=== PATIENT | male | born 1950 | race Two or more races ===

== ENCOUNTER 2016-08-31 14:53 | Outpatient (CLI) | payer MEDICAID | END 2016-08-31 14:54 | disposition home or self-care (01) | DX: N05.9 Unspecified nephritic syndrome with unspecified morphologic changes (principal); D70.9 Neutropenia, unspecified; D63.1 Anemia in chronic kidney disease; E83.30 Disorder of phosphorus metabolism, unspecified; N25.81 Secondary hyperparathyroidism of renal origin ==

== ENCOUNTER 2016-10-07 11:38 | Outpatient (CLI) | payer MEDICAID | END 2016-10-07 11:39 | disposition home or self-care (01) | DX: E87.1 Hypo-osmolality and hyponatremia (principal) ==

== ENCOUNTER 2016-12-23 09:53 | Outpatient (CLI) | payer MEDICAID | END 2016-12-23 09:54 | disposition home or self-care (01) | DX: N05.9 Unspecified nephritic syndrome with unspecified morphologic changes (principal); D70.9 Neutropenia, unspecified; D63.1 Anemia in chronic kidney disease; E83.30 Disorder of phosphorus metabolism, unspecified; N25.81 Secondary hyperparathyroidism of renal origin; M10.00 Idiopathic gout, unspecified site ==

== ENCOUNTER 2017-03-01 07:39 | Outpatient (CLI) | payer MEDICAID ==
--- NOTE | 2017-03-01 08:55 | Ultrasound Report ---
LIMITED RETROPERITONEAL ULTRASOUND: 03/01/2017 CLINICAL INDICATION: Aneurysm followup. COMPARISON: 08/26/2016, 01/21/2016 TECHNIQUE: Real-time scanning was performed with applications sales representative static images obtained. FINDINGS: The abdominal aorta measures 2.1 cm proximally, and 2.0 cm in the mid portion. Saccular d ilatation of the distal aorta is again seen, measuring 2.8 x 2.5 cm. The iliacs are normal in calibe r. No free fluid is present. IMPRESSION: STABLE SACCULAR DILATATION OF THE DISTAL ABDOMINAL AORTA. 08:9:00 JOB #: [id number] EXT JOB #:
== END 2017-03-01 07:40 | disposition home or self-care (01) ==
LOC: DI 07:39
PROVIDERS: ATTEND Internal Medicine Nephrology
DX: I71.4 Abdominal aortic aneurysm, without rupture (principal)
CPT/HCPCS: 76775

== ENCOUNTER 2017-03-24 17:53 | Outpatient (CLI) | payer MEDICAID ==
[2017-03-24 18:26] LABS: BASOPHILS # (AUTO) 0.1 10^3/uL (0.0-0.1); EOSINOPHILS # (AUTO) 1.6 10^3/uL (0.0-0.7); EOSINOPHILS % (AUTO) 21.3 %; HCT - HEMATOCRIT 28.8 % (42.0-52.0); HGB - HEMOGLOBIN 9.9 g/dL (14.0-18.0); LYMPHOCYTES # (AUTO) 0.9 10^3/uL (1.5-3.5); LYMPHOCYTES % (AUTO) 12.5 %; MEAN CORPUSCULAR HEMOGLOBIN 32.7 pg (27.0-31.0); MEAN CORPUSCULAR HGB CONC 34.4 g/dL (32.0-36.0); MEAN PLATELET VOLUME 6.9 fL (7.4-11.4); MONOCYTES # (AUTO) 0.5 10^3/uL (0.0-1.0); MONOCYTES % (AUTO) 6.8 %; NEUTROPHILS # (AUTO) 4.3 10^3/uL (1.5-6.6); NEUTROPHILS % (AUTO) 58.4 %; RED BLOOD COUNT 3.03 10^6/uL (4.70-6.10); RED CELL DISTRIBUTION WIDTH 13.3 % (12.0-15.0); UNCORRECTED WHITE BLOOD COUNT 7.3 x10^3/uL; WHITE BLOOD COUNT 7.3 x10^3/uL (4.8-10.8)
[2017-03-24 19:38] LABS: CALCIUM 8.3 mg/dL (8.5-10.3); CREATININE 6.9 mg/dL (0.6-1.2); POTASSIUM 4.7 mmol/L (3.5-5.0)
[2017-03-24 22:01] LABS: NP AUTO DIFFERENTIAL? NO; PLATELET ESTIMATE, MANUAL NORMAL (130-450,000) (NORMAL); PLATELET MORPHOLOGY NORMAL APPEARANCE (NORMAL)
[2017-03-24 22:02] LABS: NP MAN DIFFERENTIAL? YES
== END 2017-03-24 17:54 | disposition home or self-care (01) ==
LOC: LAB 17:53
PROVIDERS: ATTEND Internal Medicine Nephrology
DX: N05.9 Unspecified nephritic syndrome with unspecified morphologic changes (principal)
CPT/HCPCS: 36415; 80048; 85025

== ENCOUNTER 2017-04-20 09:02 | Outpatient (CLI) | payer MEDICAID ==
[2017-04-20 09:44] LABS: HGB - HEMOGLOBIN 8.9 g/dL (14.0-18.0); MEAN CORPUSCULAR HEMOGLOBIN 32.6 pg (27.0-31.0); MEAN CORPUSCULAR HGB CONC 34.2 g/dL (32.0-36.0); MEAN CORPUSCULAR VOLUME 95.5 fL (80.0-94.0); MEAN PLATELET VOLUME 7.5 fL (7.4-11.4); RED BLOOD COUNT 2.72 10^6/uL (4.70-6.10); RED CELL DISTRIBUTION WIDTH 14.6 % (12.0-15.0); WHITE BLOOD COUNT 8.7 x10^3/uL (4.8-10.8)
[2017-04-20 09:46] LABS: INR 0.9 (0.8-1.2); PT - PROTHROMBIN TIME 10.3 secs (9.9-12.6)
[2017-04-20 09:53] LABS: PARTIAL THROMBOPLASTIN TIME 27.2 secs (24.9-33.3)
[2017-04-20 10:39] LABS: CALCIUM 8.4 mg/dL (8.5-10.3); POTASSIUM 4.2 mmol/L (3.5-5.0)
[2017-04-20 10:44] LABS: CREATININE 7.6 mg/dL (0.6-1.2)
== END 2017-04-20 09:03 | disposition home or self-care (01) ==
LOC: LAB 09:02
PROVIDERS: ATTEND Internal Medicine Nephrology
DX: N05.9 Unspecified nephritic syndrome with unspecified morphologic changes (principal); D68.9 Coagulation defect, unspecified
CPT/HCPCS: 36415; 80048; 85610; 85730

== ENCOUNTER 2017-08-26 15:18 | Outpatient (CLI) | payer MEDICAID | END 2017-08-26 15:19 | disposition critical access hospital (66) | LOC: EMS 15:18 | PROVIDERS: ATTEND Surgery | DX: T82.838A Hemorrhage due to vascular prosthetic devices, implants and grafts, initial encounter (principal) | CPT/HCPCS: A0425; A0429 ==

== ENCOUNTER 2017-08-26 15:36 | Emergency (ER) | payer MEDICAID ==
[2017-08-26] MEDS ORDERED: TRANEXAMIC ACID 1,000 MG in SODIUM CHLORIDE 0.9% 100ML 100 ML IV STA (16:36)
[2017-08-26] MEDS ORDERED: TRANEXAMIC ACID 1,000 MG/10 ML VIAL ONE (16:45)
[2017-08-26] MEDS ORDERED: PROTAMINE 250 MG/25 ML VIAL IVP STA (16:57)
[2017-08-26 17:20] LABS: BASOPHILS # (AUTO) 0.1 10^3/uL (0.0-0.1); BASOPHILS % (AUTO) 1.1 %; EOSINOPHILS # (AUTO) 0.8 10^3/uL (0.0-0.7); EOSINOPHILS % (AUTO) 11.8 %; HGB - HEMOGLOBIN 10.2 g/dL (14.0-18.0); LYMPHOCYTES # (AUTO) 1.6 10^3/uL (1.5-3.5); LYMPHOCYTES % (AUTO) 25.1 %; MEAN CORPUSCULAR HEMOGLOBIN 33.2 pg (27.0-31.0); MEAN CORPUSCULAR HGB CONC 34.2 g/dL (32.0-36.0); MEAN CORPUSCULAR VOLUME 97.1 fL (80.0-94.0); MEAN PLATELET VOLUME 8.4 fL (7.4-11.4); MONOCYTES # (AUTO) 0.4 10^3/uL (0.0-1.0); MONOCYTES % (AUTO) 6.3 %; NEUTROPHILS # (AUTO) 3.6 10^3/uL (1.5-6.6); NEUTROPHILS % (AUTO) 55.7 %; PLT - PLATELET COUNT 122 10^3/uL (130-450); RED BLOOD COUNT 3.07 10^6/uL (4.70-6.10); RED CELL DISTRIBUTION WIDTH 17.9 % (12.0-15.0); WHITE BLOOD COUNT 6.4 x10^3/uL (4.8-10.8)
--- NOTE | 2017-08-26 17:24 | ED Physician Documentation ---
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, also hx HTN only home med is allopurinol NKDA heavy bleeding from dialysis AV fistula L arm after completing dialysis was given heparin during dialysis BIBA per other ER doc Dr Shaji awan called earlier and spoke to him and advised fistula was hard to access during dialysis, may have used Hernandez instead - pt explains that the dialysis staff accessed the AV fistula 3 times and it was painful and swelled up so they used his R chest Hernandez instead, at some point the needle was removed from the fistula and it started spouting blood - pt states Wallace bled throughout his dialysis session but itmusthave been aslower bleed- cannot believe that he was bleeding as heavily as upon arrival at dialysis for several hr and was still stable upon arrival here Review of Systems Constitutional: denies: Fever Cardiac: denies: Chest pain / pressure Respiratory: denies: Dyspnea Skin: reports: Other (bleeding from AV fistula) PD PAST MEDICAL HISTORY - Past Medical History Past Medical History: Yes : Other Other Past Medical History: RENAL FAILURE. - Present Medications Home Medications: Ambulatory Orders Medication Instructions Recorded Confirmed Acetaminophen [Tylenol] 325 mg PO PRN 08/26/17 Allopurinol 08/26/17 Amino AC/Protein Hydr/Whey Pro 30 ml 08/26/17 [Liquacel Liq Protein Pump-Go] Darbepoetin [Aranesp] 60 mcg IVP 08/26/17 Paricalcitol [Zemplar] 6 mcg PO 08/26/17 Vit B Cmplx 3/FA/Vit C/Biotin 1 tab PO DAILY 08/26/17 08/26/17 [Yary-Cris Rx Tablet] hydrOXYzine pamoate [Hydroxyzine 25 mg PO PRN 08/26/17 Pamoate] - Allergies Allergies/Adverse Reactions: Allergies Allergy/AdvReac Type Severity Reaction Status Date / Time No Known Drug Allergies Allergy Verified 08/26/17 16:59 - Social History Does the pt smoke?: No Smoking Status: Never smoker PD ED PE NORMAL - Vitals Vital signs reviewed: Yes - Extremities Extremities: Other (L arm brisk pulsatile bleeding from L arm AV fistula from 3 puncture sites, + distal perfusion) Results - Vitals Vitals: Vital Signs - 24 hr 08/26/17 08/26/17 08/26/17 15:55 17:29 18:21 Temperature 36.8 C 36.3 C L Heart Rate 88 88 81 Respiratory 18 15 18 Rate Blood Pressure 158/103 H 145/101 H 143/100 H O2 Saturation 97 100 100 08/26/17 22:01 Temperature Heart Rate 77 Respiratory 18 Rate Blood Pressure 146/98 H O2 Saturation 98 Oxygen O2 Source Room air - Labs Labs: Laboratory Tests 08/26/17 08/26/17 08/26/17 17:08 17:08 21:48 WBC 6.4 RBC 3.07 L Hgb 10.2 L 9.2 L Hct 29.8 L 27.7 L MCV 97.1 H MCH 33.2 H MCHC 34.2 RDW 17.9 H Plt Count 122 L MPV 8.4 Neut # 3.6 Lymph # 1.6 [place] # 0.4 Eos # 0.8 H Baso # 0.1 Absolute Nucleated RBC 0.00 Nucleated RBC % 0.0 Blood Type B POSITIVE Antibody Screen NEGATIVE - Rads (name of study) doppler study Radiology: See rad report (fistula patent, pseudoaneurysm underlying puncture site) PD MEDICAL DECISION MAKING - ED course ED course: pt arrives bleeding heavily no improvement with C clamp placed at dialysis center soaked through numerous pressure dressings no improvement with lido with epi nor even applying a BP cuff (tried to avoid using but could not stop the bleeding or visualize well enough to suture - did place near axillae being careful to stay well above fistula, did not help anyway so was on for < 30 sec) difficult to visualize given heavy bleeding but able to place figure 8 absorbable suture to uppermost puncture with resolution middle site stopped spontaneously after upper controlled lower puncture proved much more challenging - despite 3 figure 8 sutures bleeding persists - stop when manually pulling suture ends but starts again after tying off -applied gauze soaked in TXA and another pressure dressing for 10 minutes and bleeding finally ceased pt is feeling light headed now IV access obtained, gave protamine, checking labs, get sono to eval for thrombus after applying pressure dressing or aneurysm/pseudoaneurysm etc H/H fine - will rpt in 2 hr sono shows a pseudoaneurysm, presumably new, may need vascular intervention to prevent enlargement or recurrent bleeding, no vascular at [facility] - may need transfer to [facility] where graft was placed, paged vascular at 845 PM - still waiting on rpt H/H to be drawn as well - turned over to mid shift Dr Girard Departure - Departure Disposition: 01 Home, Self Care Clinical Impression: Pseudoaneurysm, ESRD (end stage renal disease) Hemorrhage of arteriovenous fistula Qualifiers: Encounter type: initial encounter Qualified Code(s): T82.838A - Hemorrhage due to vascular prosthetic devices, implants and grafts, initial encounter Comments: FOLLOWUP WITH VASCULAR SURGERY AT [facility] [phone] Also follow-up with Dr. Harden. ONLY THE [facility] SHOULD BE USED FOR DIALYSIS UNTIL FURTHER NOTICE Discharge Date/Time: 08/26/17 22:02
--- NOTE | 2017-08-26 20:28 | Ultrasound Preliminary Report ---
Exam: US DOPPLER LIMITED IMPRESSION: 1. Patient has a left upper extremity fistula. Fistula appears to be patent. No significant stenosis of the outflow or inflow tracts. 2. There is a rounded vascular structure in close proximity to one of the puncture sites demonstratin g healing in the inflow and turbulence. Constellation of findings is concerning for pseudoaneurysm. R ecommend assess for surgical consultation. [facility] SITE ID: [id number]
--- NOTE | 2017-08-26 20:43 | Ultrasound Report ---
EXAM: RENAL ULTRASOUND EXAM DATE: 08/26/2017 06:51 PM. CLINICAL HISTORY: Heavy bleed left dialysis AV fistula. COMPARISON: None. TECHNIQUE: Real-time scanning was performed with static images obtained. FINDINGS: Patient has a left upper extremity AV fistula graft. The inflow vessels appear patent and d emonstrate normal arterialized flow. Particularly, the brachial artery is patent. The fistula graft is patent. No evidence of stenosis. No large adjacent hematoma. There appears to be a rounded vascular structure demonstrating turbulent flow measuring approximately 2 cm in the area of one of the puncture sites. Imaging has characteristic [place] flow. Findings ar e concerning for a pseudoaneurysm. The cephalic vein appears patent and demonstrates arterialized flow. The subclavian vein is not evalu ated. As such, evaluation of the central stenosis is not possible. IMPRESSION: 1. Patient has a left upper extremity fistula. The fistula appears to be patent. No significant steno sis of the outflow or inflow tracts. 2. There is a rounded vascular structure in close proximity to one of the puncture sites demonstratin g Yin-[place] flow and turbulence. Constellation of findings is concerning for a pseudoaneurysm. Recomme nd vascular surgical consultation. [facility] Referring Provider Line: [phone] SITE ID: [id number]
--- NOTE | 2017-08-26 21:13 | ED Physician Documentation ---
ED Addendum - Addendum Addendum: 08/26/17 21:[address] Blackmon, vasc surgery at [place]. No need for followup tonight, should use Hernandez going forward for dialysis and see [facility] and Vascular surgery. Minor H/H drop but not significant. Bleeding remained stopped after Dr Avalos's interventions.
[2017-08-26 21:54] LABS: HGB - HEMOGLOBIN 9.2 g/dL (14.0-18.0)
[2017-08-26 22:02] VITALS: BP 146/98
== END 2017-08-26 22:02 | disposition home or self-care (01) ==
LOC: EDUNIT# → ED 15:36
DX: I72.9 Aneurysm of unspecified site (principal); T82.838A Hemorrhage due to vascular prosthetic devices, implants and grafts, initial encounter; I12.0 Hypertensive chronic kidney disease with stage 5 chronic kidney disease or end stage renal disease; N18.6 End stage renal disease; Z99.2 Dependence on renal dialysis
CPT/HCPCS: 12001; 36415; 85014; 85018; 85025; 86850; 86900; 86901; 93976; 96365; 96366; 96375; 99283; 99284

== ENCOUNTER 2017-09-13 06:59 | Outpatient (CLI) | payer MEDICAID ==
--- NOTE | 2017-09-13 10:40 | Ultrasound Report ---
DATE OF SERVICE: 09/13/2017 LIMITED RETROPERITONEAL ULTRASOUND: 09/13/2017 CLINICAL INDICATION: Followup aneurysm. COMPARISON: 03/01/2017 TECHNIQUE: Real-time scanning was performed with credit resolution representative static images obtained. FINDINGS: The abdominal aorta measures 2.2 cm proximally, and 2.2 cm in the mid portion. Saccular aneurysmal dilatation of the distal abdominal aorta has increased slightly, now measuring 3.5 x 3.0 cm (previously 2.8 x 2.5 cm). No free fluid is present. The iliacs remain normal in caliber. 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 TD: 09/13/2017 11:39
== END 2017-09-13 07:00 | disposition home or self-care (01) ==
LOC: DI 06:59
PROVIDERS: ATTEND Internal Medicine Nephrology
DX: I71.4 Abdominal aortic aneurysm, without rupture (principal)
CPT/HCPCS: 76775

== ENCOUNTER 2017-09-30 13:29 | Outpatient (CLI) | payer MEDICAID | END 2017-09-30 13:30 | disposition critical access hospital (66) | LOC: EMS 13:29 | PROVIDERS: ATTEND Surgery | DX: R46.4 Slowness and poor responsiveness (principal) | CPT/HCPCS: A0425; A0429 ==

== ENCOUNTER 2017-09-30 13:49 | Emergency (ER) | payer MEDICAID ==
--- NOTE | 2017-09-30 14:02 | ED Physician Documentation ---
History of Present Illness - Stated complaint Stated Complaint: ALOC - Chief complaint Chief Complaint: Neuro - History obtained from History obtained from: Patient, EMS - History of Present Illness Timing: Today - Additonal information Additional information: 67-year-old male with end-stage renal disease on dialysis was at dialysis today when he developed a change in his mental status. He became less responsive and dialysis personnel called 911. On arrival they found the patient alert and cooperative they were unable to communicate with him as there is a language barrier and interpretation phone was inadequate for communication. The patient was able to communicate that he did want to come to the hospital and they felt ill.I am able to elicit a history of cough. Review of Systems Constitutional: denies: Fever Eyes: denies: Decreased vision Ears: denies: Ear pain Nose: denies: Congestion Throat: denies: Sore throat Cardiac: denies: Chest pain / pressure, Palpitations Respiratory: reports: Dyspnea, Cough GI: denies: Abdominal Pain, Nausea, Vomiting : denies: Dysuria, Frequency Skin: denies: Rash Musculoskeletal: denies: Neck pain, Back pain, Extremity pain Neurologic: reports: Generalized weakness. denies: Focal weakness, Numbness PD PAST MEDICAL HISTORY - Past Medical History : Other - Present Medications Home Medications: Ambulatory Orders Medication Instructions Recorded Confirmed Acetaminophen [Tylenol] 325 mg PO PRN 08/26/17 Allopurinol 08/26/17 Amino AC/Protein Hydr/Whey Pro 30 ml 08/26/17 [Liquacel Liq Protein Pump-Go] Darbepoetin [Aranesp] 60 mcg IVP 08/26/17 Paricalcitol [Zemplar] 6 mcg PO 08/26/17 Vit B Cmplx 3/FA/Vit C/Biotin 1 tab PO DAILY 08/26/17 08/26/17 [Yary-Cris Rx Tablet] hydrOXYzine pamoate [Hydroxyzine 25 mg PO PRN 08/26/17 Pamoate] - Allergies Allergies/Adverse Reactions: Allergies Allergy/AdvReac Type Severity Reaction Status Date / Time No Known Drug Allergies Allergy Verified 09/30/17 13:57 - Social History Does the pt smoke?: No Smoking Status: Never smoker PD ED PE NORMAL - Vitals Vital signs reviewed: Yes (Hypertensive) - General General: No acute distress, Well developed/nourished - HEENT HEENT: Atraumatic, PERRL, EOMI, Other (There is cerumen occluding the right TM the left TM is erythematous and there is partial occlusion.) - Neck Neck: Supple, no meningeal sign - Cardiac Cardiac: RRR, No murmur - Respiratory Respiratory: No respiratory distress, Clear bilaterally - Abdomen Abdomen: Soft, Non tender - Back Back: No CVA TTP, No spinal TTP - Derm Derm: Normal color, No rash - Extremities Extremities: No deformity, No edema - Neuro Neuro: No motor deficit, No sensory deficit Eye Opening: Spontaneous Motor: Obeys Commands Verbal: Oriented GCS Score: 15 - Psych Psych: Normal mood, Normal affect Results - Vitals Vitals: Vital Signs - 24 hr 09/30/17 13:51 Temperature 36.4 C L Heart Rate 76 Respiratory 16 Rate Blood Pressure 144/103 H O2 Saturation 99 Oxygen O2 Source Room air - Labs Labs: Laboratory Tests 09/30/17 09/30/17 09/30/17 14:28 14:28 14:28 WBC 5.5 RBC 3.30 L Hgb 11.4 L Hct 33.9 L MCV 102.8 H MCH 34.6 H MCHC 33.7 RDW 18.9 H Plt Count 80 L MPV 8.4 Neut # 3.6 Lymph # 0.8 L [place] # 0.4 Eos # 0.7 Baso # 0.1 Absolute Nucleated RBC 0.00 Nucleated RBC % 0.0 Sodium 133 L Potassium 3.6 Chloride 95 L Carbon Dioxide 25 Anion Gap 13.0 BUN 22 H Creatinine 4.4 H Estimated GFR (MDRD) 13 L Glucose 81 Calcium 8.9 Total Bilirubin 1.0 AST 22 ALT 13 Alkaline Phosphatase 53 Troponin I 0.07 Total Protein 6.9 Albumin 4.1 Globulin 2.8 Albumin/Globulin Ratio 1.5 Lipase 47 - Rads (name of study) 2 view chest Radiology: Prelim report reviewed (Impression: 1. Very small bilateral pleural effusions. 2. 1.8 cm right lower lobe pulmonary nodule versus overlapping densities such as old rib fracture. Comparison with previous chest x-ray recommended if available. If no priors available, recommend follow-up chest radiograph. 3. Mild cardiomegaly.), EMP read indepedently, See rad report Procedures - IVC sono (time) 1357 Bedside IVC sono: IVC measures (cm) (1.52), Euvolemia PD MEDICAL DECISION MAKING - ED course Complexity details: reviewed old records, reviewed results, re-evaluated patient , considered differential, d/w patient, d/w family ED course: 67-year-old maleWith end-stage renal disease on dialysis has developed some dizziness with his dialysis that has happened to him each time. Today this was more profound than usual and he is complaining of some exertional dyspnea since starting dialysis 6 months ago.Today his volume status is normal on arrival to the emergency department he has no specific findings ear nose and throat and no nystagmus on lateral eye movement.Chest x-ray is without infiltrate blood work is as expected.I have asked the patient to follow-up with his dialysis doctor about symptoms from his dialysis. Departure - Departure Disposition: 01 Home, Self Care Clinical Impression: Status post dialysis Condition: Stable Instructions: ED Dialysis Hemo Follow-Up: Quiana Loomis MD [Provider Admit Priv/Credential] -
[2017-09-30 14:38] LABS: BASOPHILS # (AUTO) 0.1 10^3/uL (0.0-0.1); BASOPHILS % (AUTO) 1.2 %; EOSINOPHILS # (AUTO) 0.7 10^3/uL (0.0-0.7); EOSINOPHILS % (AUTO) 12.3 %; HGB - HEMOGLOBIN 11.4 g/dL (14.0-18.0); LYMPHOCYTES # (AUTO) 0.8 10^3/uL (1.5-3.5); LYMPHOCYTES % (AUTO) 13.9 %; MEAN CORPUSCULAR HEMOGLOBIN 34.6 pg (27.0-31.0); MEAN CORPUSCULAR HGB CONC 33.7 g/dL (32.0-36.0); MEAN CORPUSCULAR VOLUME 102.8 fL (80.0-94.0); MEAN PLATELET VOLUME 8.4 fL (7.4-11.4); MONOCYTES # (AUTO) 0.4 10^3/uL (0.0-1.0); NEUTROPHILS # (AUTO) 3.6 10^3/uL (1.5-6.6); NEUTROPHILS % (AUTO) 64.6 %; PLT - PLATELET COUNT 80 10^3/uL (130-450); RED CELL DISTRIBUTION WIDTH 18.9 % (12.0-15.0); WHITE BLOOD COUNT 5.5 x10^3/uL (4.8-10.8)
[2017-09-30 14:56] LABS: ALBUMIN 4.1 g/dL (3.2-5.5); ALBUMIN/GLOBULIN RATIO 1.5 (1.0-2.2); CALCIUM 8.9 mg/dL (8.5-10.3); CREATININE 4.4 mg/dL (0.6-1.2); TOTAL PROTEIN 6.9 g/dL (6.7-8.2)
--- NOTE | 2017-09-30 14:56 | XRAY Report ---
EXAM: CHEST RADIOGRAPHY EXAM DATE: 09/30/2017 02:27 PM. CLINICAL HISTORY: Cough weakness. COMPARISON: None. TECHNIQUE: 2 views. FINDINGS: Lungs/Pleura: There is mild blunting of both posterior costophrenic angles. There is a nodular densit y in the right lower lobe measuring 1.8 cm in diameter. There is atelectasis versus small pneumonia i n the left lower lobe. The upper lung zones are clear. Mediastinum: The heart is enlarged. The trachea is midline. Other: None. IMPRESSION: 1. Very small bilateral pleural effusions. 2. 1.8 cm right lower lobe pulmonary nodule versus overlapping densities such as old rib fracture. Co mparison with previous chest x-ray recommended if available. If no priors available, recommend follow -up chest radiograph. 3. Mild cardiomegaly. [facility] Referring Provider Line: [phone] SITE ID: [id number]
--- NOTE | 2017-09-30 14:56 | XRAY Preliminary Report ---
Exam: XR CHEST 2 VIEW X-RAY IMPRESSION: 1. Very small bilateral pleural effusions. 2. 1.8 cm right lower lobe pulmonary nodule versus overlapping densities such as old rib fracture. Co mparison with previous chest x-ray recommended if available. If no priors available, recommend follow -up chest radiograph. 3. Mild cardiomegaly. [facility] SITE ID: [id number]
[2017-09-30 15:38] VITALS: BP 145/96
== END 2017-09-30 16:25 | disposition home or self-care (01) ==
LOC: EDUNIT# → ED 13:49
DX: N18.6 End stage renal disease (principal); Z99.2 Dependence on renal dialysis; R06.00 Dyspnea, unspecified
CPT/HCPCS: 36415; 71046; 80053; 83690; 84484; 85025; 99283; 99284

== ENCOUNTER 2017-10-20 10:01 | Emergency (ER) | payer MEDICAID ==
[2017-10-20 10:08] VITALS: BP 157/59
[2017-10-20] MEDS ORDERED: ERYTHROMYCIN OPHTH OINT 1 GM TUBE EACHEYE STA (11:02)
--- NOTE | 2017-10-20 11:27 | ED Physician Documentation ---
PD HPI OPHTHO - Stated complaint Stated Complaint: BILAT EYE REDNESS - Chief complaint Chief Complaint: Heent - History obtained from History obtained from: Patient - History of Present Illness Timing - onset: Last night Timing - details: Still present Location: Both Associated symptoms: Redness, Tearing Similar symptoms before: Has not had sx before - Additional information Additional information: The patient is a 67-year-old male who presents with redness and tearing from both eyes. His symptoms started last night after putting eyedrops in his eyes. He presents with increased redness this morning. He denies any change in his visual acuity. He does not wear contact lenses. In addition to irritation and redness of his eyes, he complains of sore throat and cough. He denies fever, headache, or shortness of breath. He denies history of similar symptoms in the past. Review of Systems Constitutional: denies: Fever Eyes: reports: Discharge, Irritation. denies: Decreased vision Ears: denies: Ear pain Nose: denies: Congestion Throat: reports: Sore throat Cardiac: denies: Chest pain / pressure Respiratory: reports: Cough. denies: Dyspnea GI: denies: Abdominal Pain, Nausea, Vomiting Skin: denies: Rash Neurologic: denies: Headache PD PAST MEDICAL HISTORY - Past Medical History Respiratory: None Endocrine/Autoimmune: None : Other - Present Medications Home Medications: Ambulatory Orders Medication Instructions Recorded Confirmed Acetaminophen [Tylenol] 325 mg PO PRN 08/26/17 Allopurinol 08/26/17 Amino AC/Protein Hydr/Whey Pro 30 ml 08/26/17 [Liquacel Liq Protein Pump-Go] Darbepoetin [Aranesp] 60 mcg IVP 08/26/17 Paricalcitol [Zemplar] 6 mcg PO 08/26/17 Vit B Cmplx 3/FA/Vit C/Biotin 1 tab PO DAILY 08/26/17 08/26/17 [Yary-Cris Rx Tablet] hydrOXYzine pamoate [Hydroxyzine 25 mg PO PRN 08/26/17 Pamoate] Benzonatate [Tessalon Perle] 100 mg PO BID PRN #10 capsule 10/20/17 Erythromycin Base [Erythromycin 3.5 gm OP QID #1 oint...g. 10/20/17 Ophthalmic Ointment] - Allergies Allergies/Adverse Reactions: Allergies Allergy/AdvReac Type Severity Reaction Status Date / Time No Known Drug Allergies Allergy Verified 10/20/17 10:08 - Social History Does the pt smoke?: No Smoking Status: Never smoker PD ED PE NORMAL - Vitals Vital signs reviewed: Yes (hypertensive) - General General: Alert and oriented X 3, Well developed/nourished, Other (Language barrier exists, in that the patient speaks primarily [place]an.) - HEENT HEENT: PERRL, EOMI, Ears normal, Pharynx benign, Other (Bilateral conjunctival erythema, without exudates. Anterior chambers are clear.). No: Atraumatic - Neck Neck: Supple, no meningeal sign, No adenopathy - Cardiac Cardiac: RRR, No murmur - Respiratory Respiratory: No respiratory distress, Clear bilaterally - Abdomen Abdomen: Soft, Non tender - Derm Derm: No rash - Extremities Extremities: Normal ROM s pain - Neuro Neuro: Alert and oriented X 3, No motor deficit, Normal speech PD ED PE EXPANDED - Eyes Eyes: Visual acuity - see nn (20/20 in each eye.), PERRL, Normal accommodation, EOMI, Both eyes, Injected conj/sclera, Anterior chambers clear Results - Vitals Vitals: Oxygen O2 Source Room air PD MEDICAL DECISION MAKING - ED course Complexity details: considered differential, d/w patient, other (Consulted telephone japanese interpreter services since the patient speaks primarily [place]andan.) ED course: The patient's presentation is most consistent with bilateral conjunctivitis. There is no impairment of his physician acuity, and his exam does not suggest uveitis. Treatment in the emergency department included administration of erythromycin ophthalmic ointment bilaterally. In addition the patient complains of sore throat, but there is no oropharyngeal erythema or exudate. I do not think getting a strep screen is clinically indicated. Since there was a language barrier, interpretative services was consulted to assist with history and with discharge instructions. The patient is being discharged with a prescription for erythromycin ophthalmic ointment and for Tessalon pearls. I discussed with him the expected course of illness, treatment and outpatient follow-up, as well as potentially worrisome signs or symptoms that should prompt reevaluation in the emergency department. Departure - Departure Disposition: 01 Home, Self Care Clinical Impression: Sore throat Bilateral conjunctivitis Qualifiers: Conjunctivitis type: unspecified Qualified Code(s): H10.9 - Unspecified conjunctivitis Condition: Stable Instructions: ED Conjunctivitis Nonspecific, ED URI Viral Follow-Up: Quiana Loomis MD [Primary Care Provider] - Prescriptions: Benzonatate [Tessalon Perle] 100 mg PO BID PRN #10 capsule PRN Reason: Cough Erythromycin Base [Erythromycin Ophthalmic Ointment] 3.5 gm OP QID #1 oint...g. Comments: Insert ophthalmic ointment in each eye 4 times daily for the next 2 days. Follow up with your primary physician within 1 week if not completely resolved. Return to the emergency department if you develop increasing irritation in your eyes, or decreased visual acuity, or otherwise worsening symptoms. Discharge Date/Time: 10/20/17 11:47
== END 2017-10-20 11:47 | disposition home or self-care (01) ==
LOC: ED 10:01
DX: J02.9 Acute pharyngitis, unspecified (principal)
CPT/HCPCS: 99283; J3490

== ENCOUNTER 2017-10-27 10:02 | Emergency (ER) | payer MEDICAID ==
--- NOTE | 2017-10-27 12:02 | ED Physician Documentation ---
PD HPI HEENT - Stated complaint Stated Complaint: BILAT EYE IRRITATION - Chief complaint Chief Complaint: Heent - History obtained from History obtained from: Patient PD PAST MEDICAL HISTORY - Past Medical History Respiratory: None Endocrine/Autoimmune: None : Other - Present Medications Home Medications: Ambulatory Orders Medication Instructions Recorded Confirmed Acetaminophen [Tylenol] 325 mg PO PRN 08/26/17 Allopurinol 08/26/17 Amino AC/Protein Hydr/Whey Pro 30 ml 08/26/17 [Liquacel Liq Protein Pump-Go] Darbepoetin [Aranesp] 60 mcg IVP 08/26/17 Paricalcitol [Zemplar] 6 mcg PO 08/26/17 Vit B Cmplx 3/FA/Vit C/Biotin 1 tab PO DAILY 08/26/17 08/26/17 [Yary-Cris Rx Tablet] hydrOXYzine pamoate [Hydroxyzine 25 mg PO PRN 08/26/17 Pamoate] Benzonatate [Tessalon Perle] 100 mg PO BID PRN #10 capsule 10/20/17 Erythromycin Base [Erythromycin 3.5 gm OP QID #1 oint...g. 10/20/17 Ophthalmic Ointment] - Allergies Allergies/Adverse Reactions: Allergies Allergy/AdvReac Type Severity Reaction Status Date / Time No Known Drug Allergies Allergy Verified 10/20/17 10:08 - Social History Does the pt smoke?: No Smoking Status: Never smoker Results - Vitals Vitals: Vital Signs - 24 hr 10/27/17 10:38 Temperature 37.1 C Heart Rate 94 Respiratory 20 Rate Blood Pressure 152/77 H O2 Saturation 98 Oxygen O2 Source Room air
--- NOTE | 2017-10-27 12:16 | ED Physician Documentation ---
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 PAST MEDICAL HISTORY - Past Medical History Respiratory: None Endocrine/Autoimmune: None : Other - Present Medications Home Medications: Ambulatory Orders Medication Instructions Recorded Confirmed Acetaminophen [Tylenol] 325 mg PO PRN 08/26/17 Allopurinol 08/26/17 Amino AC/Protein Hydr/Whey Pro 30 ml 08/26/17 [Liquacel Liq Protein Pump-Go] Darbepoetin [Aranesp] 60 mcg IVP 08/26/17 Paricalcitol [Zemplar] 6 mcg PO 08/26/17 Vit B Cmplx 3/FA/Vit C/Biotin 1 tab PO DAILY 08/26/17 08/26/17 [Yary-Cris Rx Tablet] hydrOXYzine pamoate [Hydroxyzine 25 mg PO PRN 08/26/17 Pamoate] Benzonatate [Tessalon Perle] 100 mg PO BID PRN #10 capsule 10/20/17 Erythromycin Base [Erythromycin 3.5 gm OP QID #1 oint...g. 10/20/17 Ophthalmic Ointment] - Allergies Allergies/Adverse Reactions: Allergies Allergy/AdvReac Type Severity Reaction Status Date / Time No Known Drug Allergies Allergy Verified 10/20/17 10:08 - Social History Does the pt smoke?: No Smoking Status: Never smoker Results - Vitals Vitals: Vital Signs - 24 hr 10/27/17 10:38 Temperature 37.1 C Heart Rate 94 Respiratory 20 Rate Blood Pressure 152/77 H O2 Saturation 98 Oxygen O2 Source Room air
[2017-10-27] MEDS ORDERED: ALBUTEROL NEB 2.5 MG/3 ML INH STA (12:38)
[2017-10-27] MEDS ORDERED: DEXAMETHASONE 10 MG/ML VIAL PO STA (12:40)
[2017-10-27] MEDS ORDERED: BENZONATATE 100 MG CAPSULE PO STA (12:41)
[2017-10-27] MEDS ORDERED: HYDROcod/ACETAM 5/325 MG TABLET PO STA (12:41)
--- NOTE | 2017-10-27 12:41 | ED Physician Documentation ---
PD HPI LOWER EXT INJURY - Stated complaint Stated Complaint: BILAT EYE IRRITATION - Chief complaint Chief Complaint: Heent - History obtained from History obtained from: Patient - History of Present Illness PD HPI LOW EXT INJURY LOCATION: Left, Knee Type of injury: Other (awoke with knee hurting today. Hurts with ROM. Has had gout in it before. Tried allopurinol without improvement.). No: Fall, Twist Where injury occurred: Home Timing - onset: Today Timing - details: Abrupt onset, Still present Worsened by: Moving, Palpating Associated symptoms: No: Weakness, Numbness, Swelling, Discolored Contributing factors: No: Anticoagulated Recently seen: Clinic (had dialysis yesterday) Review of Systems Constitutional: denies: Fever, Chills Ears: reports: Loss of hearing (=chronic, very hard of hearing) Nose: reports: Congestion Throat: denies: Sore throat Cardiac: denies: Chest pain / pressure Respiratory: reports: Dyspnea, Cough, Wheezing GI: denies: Vomiting, Diarrhea Skin: denies: Rash, Lesions Neurologic: denies: Generalized weakness, Focal weakness, Numbness, Difficulty speaking PD PAST MEDICAL HISTORY - Past Medical History Cardiovascular: Hypertension Respiratory: None Endocrine/Autoimmune: None : Renal insuffiency, Other Musculoskeletal: Gout - Present Medications Home Medications: Ambulatory Orders Medication Instructions Recorded Confirmed Acetaminophen [Tylenol] 325 mg PO PRN 08/26/17 Allopurinol 08/26/17 Amino AC/Protein Hydr/Whey Pro 30 ml 08/26/17 [Liquacel Liq Protein Pump-Go] Darbepoetin [Aranesp] 60 mcg IVP 08/26/17 Paricalcitol [Zemplar] 6 mcg PO 08/26/17 Vit B Cmplx 3/FA/Vit C/Biotin 1 tab PO DAILY 08/26/17 08/26/17 [Yary-Cris Rx Tablet] hydrOXYzine pamoate [Hydroxyzine 25 mg PO PRN 08/26/17 Pamoate] Benzonatate [Tessalon Perle] 100 mg PO BID PRN #10 capsule 10/20/17 Erythromycin Base [Erythromycin 3.5 gm OP QID #1 oint...g. 10/20/17 Ophthalmic Ointment] Albuterol Sulf [Ventolin Hfa 1 - 2 puffs INH Q4HR PRN #1 inhaler 10/27/17 Inhaler] Azithromycin [Zithromax] 250 mg PO DAILY #6 tablet 10/27/17 Benzonatate [Tessalon] 100 mg PO TID PRN #20 capsule 10/27/17 Dexamethasone [Decadron] 4 mg PO DAILY #5 tablet 10/27/17 HYDROcod/ACETAM 5/325 [[place] 5/325] 1 tab PO Q6H PRN #15 tablet 10/27/17 - Allergies Allergies/Adverse Reactions: Allergies Allergy/AdvReac Type Severity Reaction Status Date / Time No Known Drug Allergies Allergy Verified 10/20/17 10:08 - Social History Does the pt smoke?: No Smoking Status: Never smoker PD ED PE NORMAL - Vitals Vital signs reviewed: Yes - General General: Alert and oriented X 3, No acute distress (a little anxious), Well developed/nourished - HEENT HEENT: Pharynx benign, Other (repetitive cough, which is harsh but not congested sounding. ) - Neck Neck: Supple, no meningeal sign, No adenopathy - Cardiac Cardiac: RRR, No murmur - Respiratory Respiratory: No respiratory distress. No: Clear bilaterally (no coarse sounds but some scattered wheezes. ) - Abdomen Abdomen: Soft, Non tender - Back Back: No CVA TTP - Derm Derm: Normal color, Warm and dry - Extremities Extremities: No tenderness to palpate, Other (right knee with tenderness diffusely, mostly anterior, without effusion, warmth nor redness. ) - Neuro Neuro: Alert and oriented X 3, No motor deficit, Normal speech Results - Vitals Vitals: Oxygen O2 Source Room air - Labs Labs: Laboratory Tests 10/27/17 10/27/17 10/27/17 12:13 13:03 13:03 WBC 11.1 H RBC 3.33 L Hgb 11.1 L Hct 33.4 L MCV 100.4 H MCH 33.4 H MCHC 33.3 RDW 16.2 H Plt Count 249 MPV 7.2 L Neut # 9.3 H Lymph # 0.6 L [place] # 0.9 Eos # 0.2 Baso # 0.1 Absolute Nucleated RBC 0.01 Nucleated RBC % 0.1 Sodium 128 L Potassium 3.4 L Chloride 91 L Carbon Dioxide 25 Anion Gap 12.0 BUN 39 H Creatinine 5.0 H Estimated GFR (MDRD) 12 L Glucose 98 POC Whole Bld Glucose 93 Calcium 8.8 Magnesium 2.0 Total Bilirubin 0.8 AST 24 ALT 17 Alkaline Phosphatase 58 Total Protein 6.5 L Albumin 3.5 Globulin 3.0 Albumin/Globulin Ratio 1.2 Lipase 29 - Rads (name of study) chest Radiology: Prelim report reviewed (no infiltrates. ) right knee Radiology: Prelim report reviewed (prepatellar effusion without fracture) PD MEDICAL DECISION MAKING - ED course Complexity details: considered differential (his knee sounds like bursitis or gout. Does not appear like infection. He is also bothered by a cough for the past 3-4 days. Initial nursing triage was difficult due to Irish language and hard of hearing. I spent time with him and the translation service and got the complaint clarified better. ), d/w patient, other (rn provider relations) Departure - Departure Disposition: 01 Home, Self Care Clinical Impression: ESRD (end stage renal disease) Upper respiratory infection Qualifiers: URI type: unspecified URI Qualified Code(s): J06.9 - Acute upper respiratory infection, unspecified Knee pain, acute Qualifiers: Laterality: left Qualified Code(s): M25.562 - Pain in left knee Condition: Stable Record reviewed to determine appropriate education?: Yes Instructions: ED Upper Resp Infec Abx Tx, ED Arthritis Gout Follow-Up: Quiana Loomis MD [Primary Care Provider] - Prescriptions: Albuterol Sulf [Ventolin Hfa Inhaler] 1 - 2 puffs INH Q4HR PRN #1 inhaler PRN Reason: Shortness Of Air/Wheezing Azithromycin [Zithromax] 250 mg PO DAILY #6 tablet Benzonatate [Tessalon] 100 mg PO TID PRN #20 capsule PRN Reason: Cough Dexamethasone [Decadron] 4 mg PO DAILY #5 tablet HYDROcod/ACETAM 5/325 [[place] 5/325] 1 tab PO Q6H PRN #15 tablet PRN Reason: Pain Print Language: Irish Comments: For the cough, use albuterol inhaler, Decadron, Zithromax as directed. Add Tessalon if needed for cough. For the knee pain, which I think is gout, add hydrocodone if needed for pain. Recheck if not improving in the next few days. Discharge Date/Time: 10/27/17 14:42
[2017-10-27] MEDS ORDERED: KETOROLAC 60 MG/2 ML VIAL IVP STA (12:42)
[2017-10-27 13:09] LABS: BASOPHILS # (AUTO) 0.1 10^3/uL (0.0-0.1); BASOPHILS % (AUTO) 0.8 %; EOSINOPHILS # (AUTO) 0.2 10^3/uL (0.0-0.7); EOSINOPHILS % (AUTO) 2.1 %; HGB - HEMOGLOBIN 11.1 g/dL (14.0-18.0); LYMPHOCYTES # (AUTO) 0.6 10^3/uL (1.5-3.5); LYMPHOCYTES % (AUTO) 5.5 %; MEAN CORPUSCULAR HEMOGLOBIN 33.4 pg (27.0-31.0); MEAN CORPUSCULAR HGB CONC 33.3 g/dL (32.0-36.0); MEAN CORPUSCULAR VOLUME 100.4 fL (80.0-94.0); MEAN PLATELET VOLUME 7.2 fL (7.4-11.4); MONOCYTES # (AUTO) 0.9 10^3/uL (0.0-1.0); NEUTROPHILS # (AUTO) 9.3 10^3/uL (1.5-6.6); NEUTROPHILS % (AUTO) 83.6 %; PLT - PLATELET COUNT 249 10^3/uL (130-450); RED BLOOD COUNT 3.33 10^6/uL (4.70-6.10); RED CELL DISTRIBUTION WIDTH 16.2 % (12.0-15.0); WHITE BLOOD COUNT 11.1 x10^3/uL (4.8-10.8)
[2017-10-27 13:24] LABS: ALBUMIN 3.5 g/dL (3.2-5.5); ALBUMIN/GLOBULIN RATIO 1.2 (1.0-2.2); BILIRUBIN,TOTAL 0.8 mg/dL (0.2-1.0); CALCIUM 8.8 mg/dL (8.5-10.3); TOTAL PROTEIN 6.5 g/dL (6.7-8.2)
--- NOTE | 2017-10-27 13:56 | XRAY Preliminary Report ---
Exam: XR CHEST 2 VIEW X-RAY IMPRESSION: Cardiomegaly with pulmonary vascular congestion without focal pneumonia. [facility] SITE ID: [id number]
--- NOTE | 2017-10-27 13:56 | XRAY Report ---
EXAM: CHEST RADIOGRAPHY EXAM DATE: 10/27/2017 01:37 PM. CLINICAL HISTORY: Cough and dyspnea. COMPARISON: 09/30/2017. TECHNIQUE: 2 views. FINDINGS: Lungs/Pleura: There is flattening of the left diaphragm. There is pulmonary vascular congestion witho ut pneumonia or amanda pulmonary edema. Negative for pneumothorax. Mediastinum: There is cardiomegaly. There is mild to moderate aortic atherosclerosis and tortuosity. Other: None. IMPRESSION: Cardiomegaly with pulmonary vascular congestion without focal pneumonia. [facility] Referring Provider Line: [phone] SITE ID: [id number]
--- NOTE | 2017-10-27 13:58 | XRAY Report ---
EXAM: LEFT KNEE RADIOGRAPHY EXAM DATE: 10/27/2017 01:37 PM. CLINICAL HISTORY: Knee pain today. COMPARISON: None. TECHNIQUE: 4 views. FINDINGS: Bones: Normal. No fractures or bone lesions. Joints: There is suprapatellar soft tissue swelling suspicious for a joint effusion. The joint spaces preserved. Alignment appears normal. Soft Tissues: Normal. No soft tissue swelling. IMPRESSION: Suprapatellar joint effusion without fracture or subluxation. [facility] Referring Provider Line: [phone] SITE ID: [id number]
[2017-10-27 14:18] VITALS: BP 149/90
== END 2017-10-27 14:42 | disposition home or self-care (01) ==
LOC: ED 10:02
DX: M25.562 Pain in left knee (principal); M25.462 Effusion, left knee; J06.9 Acute upper respiratory infection, unspecified; I12.0 Hypertensive chronic kidney disease with stage 5 chronic kidney disease or end stage renal disease; N18.6 End stage renal disease
CPT/HCPCS: 36415; 71046; 73564; 80053; 83690; 83735; 85025; 94640; 96374; 99283; 99284; A9270; J7613

== ENCOUNTER 2018-01-25 13:47 | Emergency (ER) | payer MEDICAID ==
[2018-01-25] MEDS ORDERED: DOCUSATE SODIUM 100 MG CAPSULE PO STA (14:05)
--- NOTE | 2018-01-25 14:10 | ED Physician Documentation ---
History of Present Illness - Stated complaint Stated Complaint: SOA - Chief complaint Chief Complaint: Resp - History obtained from History obtained from: Patient, Family, Other (I tried to use [employer] interpreter and translator, however because he is so hard of hearing he could not hear the hand -held interpreter and translator phone. The family felt comfortable translating for him.) - History of Present Illness Timing: Other (This is a 67-year-old gentleman with history of end-stage renal failure, usually dialyzed Monday, , Monday. His program review director is HANNA Harden. He had dialysis on Monday and actually had an extra run yesterday I guess because of fluid overload. He had a cough today in dialysis and was reported to be hypoxic in dialysis. They completed the dialysis run and then he was referred here for further evaluation and treatment. He is edematous according to family, he does still urinate a little bit. He also complains of 3 -4 days of painful mouth sores.) Review of Systems Constitutional: denies: Fever, Chills Cardiac: denies: Chest pain / pressure, Palpitations Respiratory: reports: Dyspnea, Cough GI: denies: Abdominal Pain PD PAST MEDICAL HISTORY - Past Medical History Cardiovascular: Hypertension Respiratory: None Endocrine/Autoimmune: None : Renal insuffiency, Other Musculoskeletal: Gout - Present Medications Home Medications: Ambulatory Orders Medication Instructions Recorded Confirmed Acetaminophen [Tylenol] 325 mg PO PRN 08/26/17 Allopurinol 08/26/17 Amino AC/Protein Hydr/Whey Pro 30 ml 08/26/17 [Liquacel Liq Protein Pump-Go] Darbepoetin [Aranesp] 60 mcg IVP 08/26/17 Paricalcitol [Zemplar] 6 mcg PO 08/26/17 Vit B Cmplx 3/FA/Vit C/Biotin 1 tab PO DAILY 08/26/17 08/26/17 [Yary-Cris Rx Tablet] hydrOXYzine pamoate [Hydroxyzine 25 mg PO PRN 08/26/17 Pamoate] Benzonatate [Tessalon Perle] 100 mg PO BID PRN #10 capsule 10/20/17 Erythromycin Base [Erythromycin 3.5 gm OP QID #1 oint...g. 10/20/17 Ophthalmic Ointment] Albuterol Sulf [Ventolin Hfa 1 - 2 puffs INH Q4HR PRN #1 inhaler 10/27/17 Inhaler] Azithromycin [Zithromax] 250 mg PO DAILY #6 tablet 10/27/17 Benzonatate [Tessalon] 100 mg PO TID PRN #20 capsule 10/27/17 Dexamethasone [Decadron] 4 mg PO DAILY #5 tablet 10/27/17 HYDROcod/ACETAM 5/325 [[place] 5/325] 1 tab PO Q6H PRN #15 tablet 10/27/17 Magic Mouthwash 5 ml PO Q4H PRN #150 ml 01/25/18 - Allergies Allergies/Adverse Reactions: Allergies Allergy/AdvReac Type Severity Reaction Status Date / Time No Known Drug Allergies Allergy Verified 10/20/17 10:08 - Social History Does the pt smoke?: No Smoking Status: Never smoker PD ED PE NORMAL - Vitals Vital signs reviewed: Yes - General General: No acute distress, Well developed/nourished - HEENT HEENT: PERRL, EOMI, Other (He has ulcers on the tip of the tongue; bilateral cerumen impaction) - Neck Neck: Supple, no meningeal sign, No bony TTP - Cardiac Cardiac: RRR, No murmur - Respiratory Respiratory: No respiratory distress, Other (Rhonchorous and wheezy throughout, nonlabored) - Abdomen Abdomen: Soft, Non tender - Extremities Extremities: Other (He has significant JVD, there is a AV fistula in the left arm with normal thrill. He has 2+ pedal edema.) - Psych Psych: Normal mood, Normal affect Results - Vitals Vitals: Vital Signs - 24 hr 01/25/18 01/25/18 13:51 15:47 Temperature 36.8 C 36.5 C Heart Rate 85 89 Respiratory 22 18 Rate Blood Pressure 141/94 H 141/84 H O2 Saturation 100 100 Oxygen O2 Source Room air - EKG (time done) 1409 Rate: Rate (enter#) (82) Rhythm: NSR Grant: Normal Intervals: Normal OH QRS: Low voltage Ischemia: Q waves (anterior), Non specific changes Computer interpretation: Agree with computer - Labs Labs: Laboratory Tests 01/25/18 01/25/18 01/25/18 14:22 14:22 14:22 WBC 5.5 RBC 3.04 L Hgb 10.3 L Hct 30.6 L MCV 100.5 H MCH 33.8 H MCHC 33.7 RDW 17.0 H Plt Count 71 L MPV 9.0 Neut # 3.7 Lymph # 0.7 L Heard # 0.6 Eos # 0.5 Baso # 0.1 Absolute Nucleated RBC 0.00 Nucleated RBC % 0.0 Sodium 129 L Potassium 3.7 Chloride 94 L Carbon Dioxide 29 Anion Gap 6.0 BUN 22 H Creatinine 2.9 H Estimated GFR (MDRD) 22 L Glucose 78 Calcium 8.5 Total Bilirubin 1.1 H AST 37 ALT 20 Alkaline Phosphatase 97 Troponin I 0.10 B-Natriuretic Peptide Total Protein 7.0 Albumin 3.8 Globulin 3.2 Albumin/Globulin Ratio 1.2 Lipase 83 H 01/25/18 14:22 WBC RBC Hgb Hct MCV MCH MCHC RDW Plt Count MPV Neut # Lymph # Heard # Eos # Baso # Absolute Nucleated RBC Nucleated RBC % Sodium Potassium Chloride Carbon Dioxide Anion Gap BUN Creatinine Estimated GFR (MDRD) Glucose Calcium Total Bilirubin AST ALT Alkaline Phosphatase Troponin I B-Natriuretic Peptide 4287 H Total Protein Albumin Globulin Albumin/Globulin Ratio Lipase - Rads (name of study) 2v chest Radiology: EMP read contemporaneously (Cardiomegaly and hyperinflation without acute disease) PD MEDICAL DECISION MAKING - ED course ED course: 67-year-old gentleman presents from dialysis with some evidence of fluid overload and dyspnea however his lungs are clear on x-ray and his edema is not too bad. We discussed sodium intake, and they are not limiting his salt at all to lower his sodium intake to 2 g per day diet. He also had acute hearing loss and this was due to cerumen impaction, the nurse placed Colace in both of his ears and after this I irrigated both of his ears with significant improvement in his hearing after large chunks of wax removed. Note slight troponin anemia and BNP, these are likely from his end-stage renal failure as opposed to a primary coronary insult given his lack of chest pain. Departure - Departure Disposition: 01 Home, Self Care Clinical Impression: ESRD (end stage renal disease), Status post dialysis, Oral ulcer Cerumen impaction Qualifiers: Laterality: bilateral Qualified Code(s): H61.23 - Impacted cerumen, bilateral Condition: Good Record reviewed to determine appropriate education?: Yes Prescriptions: Magic Mouthwash 5 ml PO Q4H PRN #150 ml PRN Reason: mouth pain Comments: Return if worse. Go down to no more than 2 g of sodium in his diet per day which means being very careful about reading labels and decreasing things like soy sauce, fish sauce, Nasi Goreng. Dialysis on Monday as usual.
[2018-01-25 14:31] LABS: BASOPHILS # (AUTO) 0.1 10^3/uL (0.0-0.1); BASOPHILS % (AUTO) 1.4 %; EOSINOPHILS # (AUTO) 0.5 10^3/uL (0.0-0.7); EOSINOPHILS % (AUTO) 9.8 %; HGB - HEMOGLOBIN 10.3 g/dL (14.0-18.0); LYMPHOCYTES # (AUTO) 0.7 10^3/uL (1.5-3.5); LYMPHOCYTES % (AUTO) 12.5 %; MEAN CORPUSCULAR HEMOGLOBIN 33.8 pg (27.0-31.0); MEAN CORPUSCULAR HGB CONC 33.7 g/dL (32.0-36.0); MEAN CORPUSCULAR VOLUME 100.5 fL (80.0-94.0); MONOCYTES # (AUTO) 0.6 10^3/uL (0.0-1.0); MONOCYTES % (AUTO) 10.3 %; NEUTROPHILS # (AUTO) 3.7 10^3/uL (1.5-6.6); PLT - PLATELET COUNT 71 10^3/uL (130-450); RED BLOOD COUNT 3.04 10^6/uL (4.70-6.10); WHITE BLOOD COUNT 5.5 x10^3/uL (4.8-10.8)
[2018-01-25 14:42] LABS: ALBUMIN 3.8 g/dL (3.2-5.5); ALBUMIN/GLOBULIN RATIO 1.2 (1.0-2.2); BILIRUBIN,TOTAL 1.1 mg/dL (0.2-1.0); CALCIUM 8.5 mg/dL (8.5-10.3); CREATININE 2.9 mg/dL (0.6-1.2)
[2018-01-25] MEDS ORDERED: DOCUSATE SODIUM 100 MG/10 ML UDC PO ONE (15:00)
--- NOTE | 2018-01-25 15:04 | XRAY Preliminary Report ---
Exam: XR CHEST 2 VIEW X-RAY IMPRESSION: 1. No acute disease. 2. Cardiomegaly. Hyperinflation may reflect COPD. [facility] SITE ID: [id number]
--- NOTE | 2018-01-25 15:04 | XRAY Report ---
EXAM: CHEST RADIOGRAPHY EXAM DATE: 01/25/2018 02:55 PM. CLINICAL HISTORY: Dyspnea. COMPARISON: 10/27/2017. TECHNIQUE: 2 views. FINDINGS: Lungs/Pleura: No focal consolidation. No edema. No pleural effusion. Blunting of costophrenic sulci i s unchanged. No pneumothorax. Mild hyperinflation. Mediastinum: The heart is enlarged, unchanged. Other: None. IMPRESSION: 1. No acute disease. 2. Cardiomegaly. Hyperinflation may reflect COPD. [facility] Referring Provider Line: [phone] SITE ID: [id number]
[2018-01-25 15:49] VITALS: BP 141/84
== END 2018-01-25 16:20 | disposition home or self-care (01) ==
LOC: ED 13:47
DX: I12.0 Hypertensive chronic kidney disease with stage 5 chronic kidney disease or end stage renal disease (principal); N18.6 End stage renal disease; Z99.2 Dependence on renal dialysis; K12.1 Other forms of stomatitis; H61.23 Impacted cerumen, bilateral
CPT/HCPCS: 36415; 69209; 71046; 80053; 83690; 83880; 84484; 85025; 93005; 99284; A9270

== ENCOUNTER 2018-02-02 11:00 | Emergency (ER) | payer MEDICAID ==
[2018-02-02] MEDS ORDERED: FUROSEMIDE 20 MG TABLET PO STA (12:37)
--- NOTE | 2018-02-02 12:41 | ED Physician Documentation ---
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 He states he has had increased swelling in his legs and scrotum over the past 2 days. No fever. No vomiting. No discharge. No redness. States he occasionally misses dialysis. States he does not want to go to dialysis tomorrow as he wants to go fishing instead. Swelling improves with elevation of the legs and scrotum. Worse with walking Review of Systems Constitutional: denies: Fever, Chills Throat: denies: Sore throat Respiratory: denies: Cough GI: denies: Abdominal Pain, Nausea, Vomiting, Diarrhea Skin: denies: Rash Musculoskeletal: denies: Neck pain, Back pain PD PAST MEDICAL HISTORY - Past Medical History Past Medical History: Yes Cardiovascular: Hypertension Respiratory: None Endocrine/Autoimmune: None : Renal insuffiency, Other Musculoskeletal: Gout Derm: None - Past Surgical History Past Surgical History: No - Present Medications Home Medications: Ambulatory Orders Medication Instructions Recorded Confirmed Acetaminophen [Tylenol] 325 mg PO PRN 08/26/17 Allopurinol 08/26/17 Amino AC/Protein Hydr/Whey Pro 30 ml 08/26/17 [Liquacel Liq Protein Pump-Go] Darbepoetin [Aranesp] 60 mcg IVP 08/26/17 Paricalcitol [Zemplar] 6 mcg PO 08/26/17 Vit B Cmplx 3/FA/Vit C/Biotin 1 tab PO DAILY 08/26/17 08/26/17 [Yary-Cris Rx Tablet] hydrOXYzine pamoate [Hydroxyzine 25 mg PO PRN 08/26/17 Pamoate] Benzonatate [Tessalon Perle] 100 mg PO BID PRN #10 capsule 10/20/17 Erythromycin Base [Erythromycin 3.5 gm OP QID #1 oint...g. 10/20/17 Ophthalmic Ointment] Albuterol Sulf [Ventolin Hfa 1 - 2 puffs INH Q4HR PRN #1 inhaler 10/27/17 Inhaler] Azithromycin [Zithromax] 250 mg PO DAILY #6 tablet 10/27/17 Benzonatate [Tessalon] 100 mg PO TID PRN #20 capsule 10/27/17 Dexamethasone [Decadron] 4 mg PO DAILY #5 tablet 10/27/17 HYDROcod/ACETAM 5/325 [[place] 5/325] 1 tab PO Q6H PRN #15 tablet 10/27/17 Magic Mouthwash 5 ml PO Q4H PRN #150 ml 01/25/18 - Allergies Allergies/Adverse Reactions: Allergies Allergy/AdvReac Type Severity Reaction Status Date / Time No Known Drug Allergies Allergy Verified 02/02/18 11:51 - Social History Does the pt smoke?: No Smoking Status: Never smoker Does the pt drink ETOH?: No Does the pt have substance abuse?: No - Immunizations Immunizations are current?: No - POLST Patient has POLST: No PD ED PE NORMAL - Vitals Vital signs reviewed: Yes - General General: Alert and oriented X 3, No acute distress - HEENT HEENT: Moist mucous membranes, Pharynx benign, Other (hard of hearing) - Neck Neck: Supple, no meningeal sign - Cardiac Cardiac: RRR, Strong equal pulses - Respiratory Respiratory: No respiratory distress, Clear bilaterally - Abdomen Abdomen: Soft, Non tender, Non distended - Derm Derm: Warm and dry - Extremities Extremities: Other (2+ B LE pitting edema with edema to the scrotum as well. no hernias. no erythema, no crepitus over the scrotum, pelvis or legs. ) - Neuro Neuro: Alert and oriented X 3 Results - Vitals Vitals: Vital Signs - 24 hr 02/02/18 11:14 Temperature 36.7 C Heart Rate 87 Respiratory 18 Rate Blood Pressure 143/88 H O2 Saturation 100 Oxygen O2 Source Room air PD MEDICAL DECISION MAKING - ED course Complexity details: considered differential, d/w patient ED course: Patient is a 67-year-old male who presents to the emergency department bilateral lower extremity swelling. Recommend he follow-up with his usually scheduled dialysis tomorrow to have the fluid drained off of him. He states he does still make some urine and so will trial on the. Recommend he elevate his legs whenever possible as well as his scrotum. Patient counseled regarding signs and symptoms for which I believe and urgent re-evaluation would be necessary. Patient with good understanding of and agreement to plan and is comfortable going home at this time This document was made in part using voice recognition software. While efforts are made to proofread this document, sound alike and grammatical errors may occur. - Sepsis Event Vital Signs: Vital Signs - 24 hr 02/02/18 11:14 Temperature 36.7 C Heart Rate 87 Respiratory 18 Rate Blood Pressure 143/88 H O2 Saturation 100 Oxygen O2 Source Room air Departure - Departure Disposition: 01 Home, Self Care Clinical Impression: Peripheral edema, Scrotal edema, ESRD (end stage renal disease) Condition: Good Instructions: ED Edema Legs Bilateral Follow-Up: Yeison Balderas MD [Primary Care Provider] - Within 3 Days Print Language: Setswana Comments: You need to go to dialysis tomorrow as scheduled to remove the excess fluid from your legs and scrotum. There is no infection present today. Return if you worsen.
[2018-02-02 13:12] VITALS: BP 135/87
== END 2018-02-02 13:08 | disposition home or self-care (01) ==
LOC: ED 11:00
DX: R60.0 Localized edema (principal); N50.89 Other specified disorders of the male genital organs; I12.0 Hypertensive chronic kidney disease with stage 5 chronic kidney disease or end stage renal disease; N18.6 End stage renal disease; Z99.2 Dependence on renal dialysis; M10.9 Gout, unspecified
CPT/HCPCS: 99283; 99284; A9270

== ENCOUNTER 2018-03-23 16:20 | Outpatient (CLI) | payer MEDICAID, MEDICARE ==
--- NOTE | 2018-03-23 21:40 | CT Report ---
Procedure Date: 03/23/2018 Accession Number: [id number] / [id number] Procedure: CT - Chest W/O CPT Code: FULL RESULT: EXAM: CT CHEST HIGH-RESOLUTION WITHOUT CONTRAST EXAM DATE: 03/23/2018 04:47 PM. CLINICAL HISTORY: Lung nodule. COMPARISON: Noncontrast CT chest 03/23/2018. TECHNIQUE: High-resolution CT was performed utilizing thin section imaging in supine and prone position. Multiaxial helical CT imaging was performed through the chest. IV contrast: None. Reconstructions: Coronal and sagittal. In accordance with CT protocol optimization, one or more of the following dose reduction techniques were utilized for this exam: automated exposure control, adjustment of mA and/or KV based on patient size, or use of iterative reconstructive technique. FINDINGS: Lungs: There is no evidence of subpleural reticulation, bronchiectasis, or architectural distortion. There are small, nonspecific areas of juxtapleural reticular density within the right upper lobe (image 16 series 3) and anterior medial left upper lobe (image 26). No suspicious nodules are seen. No evidence of lobar infiltrate. No central airway abnormalities. There are small bilateral pleural effusions. Expiratory imaging demonstrates no evidence of significant air trapping. Prone imaging demonstrates free movement of the pleural effusions. Mediastinum: There is cardiomegaly. There are coronary artery calcifications. There is a small pericardial effusion. Visualization of cardiac chambers indicates underlying anemia. There are no enlarged axillary, supraclavicular, mediastinal, or hilar lymph nodes. Visualized Abdomen: No acute abnormalities are seen. Bones: No acute bony abnormalities are seen. IMPRESSION: 1. There is no clear evidence of interstitial lung disease. No discrete lung nodules are seen. 2. There are small bilateral pleural effusions. 3. There are areas of upper lung juxtapleural reticular density which could represent scarring. 4. There is cardiomegaly. There are coronary artery calcifications. There is a small pericardial effusion. [facility]
== END 2018-03-23 16:21 | disposition home or self-care (01) ==
LOC: DI 16:20
PROVIDERS: ATTEND Internal Medicine Nephrology
DX: J90 Pleural effusion, not elsewhere classified (principal); R91.8 Other nonspecific abnormal finding of lung field; I51.7 Cardiomegaly
CPT/HCPCS: 71250

== ENCOUNTER 2018-03-28 22:17 | Emergency (ER) | payer MEDICAID ==
--- NOTE | 2018-03-28 22:29 | ED Physician Documentation ---
PD HPI HEENT - Stated complaint Stated Complaint: POST DENTAL PROCEDURE BLEEDING - Chief complaint Chief Complaint: Heent - History obtained from History obtained from: Patient, Family - History of Present Illness Timing - onset: Today Timing - details: Gradual onset Associated symptoms: No: Fever Recently seen: Clinic - Additional information Additional information: patient had 7 teeth extracted earlier today, presents due to ongoing slow oozing of blood from extraction sites. also had 2 teeth pulled few days ago but no problems with those sites. Review of Systems Constitutional: reports: Reviewed and negative Respiratory: denies: Dyspnea Neurologic: denies: Generalized weakness PD PAST MEDICAL HISTORY - Past Medical History Cardiovascular: Hypertension Respiratory: None Endocrine/Autoimmune: None : Renal insuffiency, Other Musculoskeletal: Gout Derm: None - Past Surgical History Past Surgical History: No - Present Medications Home Medications: Ambulatory Orders Medication Instructions Recorded Confirmed Acetaminophen [Tylenol] 325 mg PO PRN 08/26/17 Allopurinol 08/26/17 Amino AC/Protein Hydr/Whey Pro 30 ml 08/26/17 [Liquacel Liq Protein Pump-Go] Darbepoetin [Aranesp] 60 mcg IVP 08/26/17 Paricalcitol [Zemplar] 6 mcg PO 08/26/17 Vit B Cmplx 3/FA/Vit C/Biotin 1 tab PO DAILY 08/26/17 08/26/17 [Yary-Cris Rx Tablet] hydrOXYzine pamoate [Hydroxyzine 25 mg PO PRN 08/26/17 Pamoate] Benzonatate [Tessalon Perle] 100 mg PO BID PRN #10 capsule 10/20/17 Erythromycin Base [Erythromycin 3.5 gm OP QID #1 oint...g. 10/20/17 Ophthalmic Ointment] Albuterol Sulf [Ventolin Hfa 1 - 2 puffs INH Q4HR PRN #1 inhaler 10/27/17 Inhaler] Azithromycin [Zithromax] 250 mg PO DAILY #6 tablet 10/27/17 Benzonatate [Tessalon] 100 mg PO TID PRN #20 capsule 10/27/17 Dexamethasone [Decadron] 4 mg PO DAILY #5 tablet 10/27/17 HYDROcod/ACETAM 5/325 [[place] 5/325] 1 tab PO Q6H PRN #15 tablet 10/27/17 Magic Mouthwash 5 ml PO Q4H PRN #150 ml 01/25/18 - Allergies Allergies/Adverse Reactions: Allergies Allergy/AdvReac Type Severity Reaction Status Date / Time No Known Drug Allergies Allergy Verified 03/28/18 22:27 - Social History Does the pt smoke?: No Smoking Status: Never smoker Does the pt drink ETOH?: No Does the pt have substance abuse?: No - Immunizations Immunizations are current?: No - POLST Patient has POLST: No PD ED PE NORMAL - Vitals Vital signs reviewed: Yes - General General: Alert and oriented X 3, No acute distress, Well developed/nourished PD ED PE EXPANDED - HEENT HEENT Visual: 1 - bruising (slow oozing bleeding from diagrammed area (posterior gingiva of extraction sites)) Results - Vitals Vitals: Oxygen O2 Source Room air - Labs Labs: Laboratory Tests 03/28/18 03/28/18 23:40 23:40 WBC 11.0 H RBC 2.62 L Hgb 9.2 L Hct 26.8 L MCV 102.5 H MCH 35.2 H MCHC 34.4 RDW 16.7 H Plt Count 100 L MPV 8.1 Neut # (Auto) 9.1 H Lymph # (Auto) 0.6 L [place] # (Auto) 0.9 Eos # (Auto) 0.4 Baso # (Auto) 0.1 Absolute Nucleated RBC 0.00 Nucleated RBC % 0.0 PT 12.3 INR 1.1 APTT 32.0 PD MEDICAL DECISION MAKING - ED course Complexity details: reviewed results, re-evaluated patient, considered differential, d/w patient, d/w family ED course: TXA sprayed (using atomizer) onto mucosa at bleeding site, followed by placement of gauze soaked with TXA. this was kelt in place for 15 minutes ( patient had moved the gauze a little while I was out of the room, and thus unclear if contact time (TXA/gingiva) was truly the entire 15 minutes). On reevaluation, bleeding has stopped except for trace, intermittent scant oozing from a spot posterior to the site of medial incisor (mandibular) extraction site - Sepsis Event Vital Signs: Oxygen O2 Source Room air Departure - Departure Disposition: 01 Home, Self Care Clinical Impression: Surgical wound hemorrhage after dental procedure Condition: Good Instructions: ED Wound Check Post Op Bleeding Comments: Contact your dentist's office as soon as they open in the morning to arrange for reevaluation. Discharge Date/Time: 03/29/18 00:17
[2018-03-28] MEDS ORDERED: TRANEXAMIC ACID 1,000 MG/10 ML VIAL NAS STA (22:50)
[2018-03-28 23:48] LABS: BASOPHILS # (AUTO) 0.1 10^3/uL (0.0-0.1); BASOPHILS % (AUTO) 0.8 %; EOSINOPHILS # (AUTO) 0.4 10^3/uL (0.0-0.7); EOSINOPHILS % (AUTO) 3.3 %; HGB - HEMOGLOBIN 9.2 g/dL (14.0-18.0); LYMPHOCYTES # (AUTO) 0.6 10^3/uL (1.5-3.5); LYMPHOCYTES % (AUTO) 5.4 %; MEAN CORPUSCULAR HEMOGLOBIN 35.2 pg (27.0-31.0); MEAN CORPUSCULAR HGB CONC 34.4 g/dL (32.0-36.0); MEAN CORPUSCULAR VOLUME 102.5 fL (80.0-94.0); MEAN PLATELET VOLUME 8.1 fL (7.4-11.4); MONOCYTES # (AUTO) 0.9 10^3/uL (0.0-1.0); MONOCYTES % (AUTO) 8.2 %; NEUTROPHILS # (AUTO) 9.1 10^3/uL (1.5-6.6); NEUTROPHILS % (AUTO) 82.3 %; PLT - PLATELET COUNT 100 10^3/uL (130-450); RED BLOOD COUNT 2.62 10^6/uL (4.70-6.10); RED CELL DISTRIBUTION WIDTH 16.7 % (12.0-15.0)
[2018-03-28 23:54] LABS: INR 1.1 (0.8-1.2); PT - PROTHROMBIN TIME 12.3 secs (9.9-12.6)
[2018-03-29 00:17] VITALS: BP 138/71
== END 2018-03-29 00:17 | disposition home or self-care (01) ==
LOC: ED 22:17
DX: K91.840 Postprocedural hemorrhage of a digestive system organ or structure following a digestive system procedure (principal)
CPT/HCPCS: 36415; 85025; 85610; 85730; 99283

== ENCOUNTER 2018-05-03 13:10 | Outpatient (CLI) | payer MEDICAID | END 2018-05-03 13:11 | disposition critical access hospital (66) | LOC: EMS 13:10 | PROVIDERS: ATTEND Surgery | DX: R09.89 Other specified symptoms and signs involving the circulatory and respiratory systems (principal) | CPT/HCPCS: A0425; A0429 ==

== ENCOUNTER 2018-05-03 13:26 | Emergency (ER) | payer MEDICAID ==
--- NOTE | 2018-05-03 13:38 | ED Physician Documentation ---
PD HPI DYSPNEA - Stated complaint Stated Complaint: RESP. ISSUES - Chief complaint Chief Complaint: Resp - History obtained from History obtained from: Patient - History of Present Illness Timing - onset: Today Timing - onset during: Light activity (he was getting up from being done dialysis.) Timing - details: Abrupt onset (He had feeling of dyspnea and lowered BP after dialysis. [place] okay during. He was noted to have O2 sats in low 80s. EMS called and brought patient here. He had good sats enroute but was getting oxygen by FM. He says he was feeling better. He says he has had some cough and was noted to have some wheezing. Subsequently when his granddaughter arrived, he was able to relate that he has had similar symptoms with exertion and after dialysis for 1-2 months, though today was more than prior.), Now resolved Inciting event(s): Other (just finished dialysis, though he says he has had similar symptoms when walking up hill or stairs for couple of months.). No: Out of meds, URI, Immobilization/travel Improved by: Rest Worsened by: Exertion Associated symptoms: Cough, Wheezing. No: Fever, Hemoptysis, Chest pain / discomfort, Bilateral edema Similar symptoms before: No diagnosis Recently seen: Clinic (dialysis 3 times weekly.) Review of Systems Constitutional: denies: Fever, Chills Nose: denies: Rhinorrhea / runny nose, Congestion Throat: denies: Oral lesions / sores Cardiac: denies: Chest pain / pressure, Palpitations Respiratory: reports: Cough, Wheezing GI: denies: Nausea, Vomiting, Diarrhea Musculoskeletal: denies: Neck pain Neurologic: reports: Generalized weakness (often). denies: Focal weakness, Numbness PD PAST MEDICAL HISTORY - Past Medical History Cardiovascular: Hypertension Respiratory: None Endocrine/Autoimmune: None : Renal insuffiency, Other Musculoskeletal: Gout Derm: None - Past Surgical History Past Surgical History: No - Present Medications Home Medications: Ambulatory Orders Medication Instructions Recorded Confirmed Acetaminophen [Tylenol] 325 mg PO PRN 08/26/17 Allopurinol 08/26/17 Amino AC/Protein Hydr/Whey Pro 30 ml 08/26/17 [Liquacel Liq Protein Pump-Go] Darbepoetin [Aranesp] 60 mcg IVP 08/26/17 Paricalcitol [Zemplar] 6 mcg PO 08/26/17 Vit B Comp No.3/Folic/C/Biotin 1 tab PO DAILY 08/26/17 08/26/17 [Yary-Cris Rx Tablet] hydrOXYzine pamoate [Hydroxyzine 25 mg PO PRN 08/26/17 Pamoate] Benzonatate [Tessalon Perle] 100 mg PO BID PRN #10 capsule 10/20/17 Erythromycin Base [Erythromycin 3.5 gm OP QID #1 oint...g. 10/20/17 Ophthalmic Ointment] Albuterol Sulf [Ventolin Hfa 1 - 2 puffs INH Q4HR PRN #1 inhaler 10/27/17 Inhaler] Azithromycin [Zithromax] 250 mg PO DAILY #6 tablet 10/27/17 Benzonatate [Tessalon] 100 mg PO TID PRN #20 capsule 10/27/17 Dexamethasone [Decadron] 4 mg PO DAILY #5 tablet 10/27/17 HYDROcod/ACETAM 5/325 [[place] 5/325] 1 tab PO Q6H PRN #15 tablet 10/27/17 Magic Mouthwash 5 ml PO Q4H PRN #150 ml 01/25/18 Albuterol Sulf [Ventolin Hfa 1 - 2 puffs INH Q4HR PRN #1 inhaler 05/03/18 Inhaler] - Allergies Allergies/Adverse Reactions: Allergies Allergy/AdvReac Type Severity Reaction Status Date / Time No Known Drug Allergies Allergy Verified 03/28/18 22:27 - Social History Does the pt smoke?: No Smoking Status: Never smoker Does the pt drink ETOH?: No Does the pt have substance abuse?: No - Immunizations Immunizations are current?: No - POLST Patient has POLST: No PD ED PE NORMAL - Vitals Vital signs reviewed: Yes - General General: Alert and oriented X 3, Well developed/nourished, Other (speaks slight tamazight, but understands reasonably. His granddaughter is used for translation and he is okay with that. He is offered translation phone and declines. ) - HEENT HEENT: Pharynx benign - Neck Neck: Supple, no meningeal sign, No adenopathy, No JVD - Cardiac Cardiac: RRR, No murmur - Respiratory Respiratory: No respiratory distress, Other (diffuse exp wheezing noted. He is able to talk in sentences. ) - Abdomen Abdomen: Soft, Non tender - Derm Derm: Normal color, Warm and dry - Extremities Extremities: No edema, No calf tenderness / cord - Neuro Neuro: No motor deficit, Normal speech Results - Vitals Vitals: Vital Signs - 24 hr 05/03/18 05/03/18 05/03/18 13:33 14:06 14:12 Heart Rate 83 82 80 Respiratory 26 H 20 10 L Rate Blood Pressure 144/97 H 141/97 H O2 Saturation 95 100 05/03/18 05/03/18 05/03/18 14:30 15:39 16:21 Heart Rate 84 89 90 Respiratory 16 16 16 Rate Blood Pressure 141/97 H 164/105 H 149/92 H O2 Saturation 99 100 96 Oxygen O2 Source Room air Oxygen Flow Rate 8 - EKG (time done) 14:03 Rate: Rate (enter#) (85) Rhythm: NSR [place]: Normal Intervals: Normal [place] QRS: Poor R wave progression Ischemia: Normal ST segments. No: ST elevation c/w ischemia, ST depression - Labs Labs: Laboratory Tests 05/03/18 05/03/18 05/03/18 14:43 14:43 14:43 WBC 5.3 RBC 2.69 L Hgb 9.6 L Hct 28.2 L MCV 104.9 H MCH 35.9 H MCHC 34.2 RDW 16.5 H Plt Count 108 L MPV 8.4 Neut # (Auto) 3.7 Lymph # (Auto) 0.6 L [place] # (Auto) 0.4 Eos # (Auto) 0.4 Baso # (Auto) 0.1 Absolute Nucleated RBC 0.00 Nucleated RBC % 0.0 D-Dimer 664.2 H Sodium 133 L Potassium 3.5 Chloride 96 L Carbon Dioxide 28 Anion Gap 9.0 BUN 18 Creatinine 3.4 H Estimated GFR (MDRD) 18 L Glucose 99 Calcium 8.7 Magnesium 1.9 Total Bilirubin 1.0 AST 28 ALT 25 Alkaline Phosphatase 134 H B-Natriuretic Peptide Total Protein 7.1 Albumin 3.9 Globulin 3.2 Albumin/Globulin Ratio 1.2 Lipase 154 H 05/03/18 14:43 WBC RBC Hgb Hct MCV MCH MCHC RDW Plt Count MPV Neut # (Auto) Lymph # (Auto) [place] # (Auto) Eos # (Auto) Baso # (Auto) Absolute Nucleated RBC Nucleated RBC % D-Dimer Sodium Potassium Chloride Carbon Dioxide Anion Gap BUN Creatinine Estimated GFR (MDRD) Glucose Calcium Magnesium Total Bilirubin AST ALT Alkaline Phosphatase B-Natriuretic Peptide 7593.00 H Total Protein Albumin Globulin Albumin/Globulin Ratio Lipase - Rads (name of study) chest xray Radiology: Prelim report reviewed (some cardiomegaly, stable. ) PD MEDICAL DECISION MAKING - ED course Complexity details: reviewed results (basic labs noted with stable anemia. Did some labs for CHF and clotting but these are nonspecific and less accurate in renal failure. Lytes are okay. I did review with Dr. Loomis that BNP elevated and consideration CHF. I am not able to get an ECHO in ER today. Patient is better and stable and seems like reactive airway. Dr. Loomis will get patient testing for heart function, given the high BNP. d-dimer is reasonable age-adjusted and given renal failure. ), re-evaluated patient (He is feeling much better with Albuterol neb, and his sats have been adequate here in ER. He is clinically better. Can talk with his granddaughter here to help with translation and he has been having MARTIN and dyspnea with dialysis for 1-2 months, not new today.), considered differential, d/w patient, d/w client service consultant (HANNA Loomis - his [employer] Consultant. He will review prior records and see if recent ECHO. Otherwise will get one in f/u. ) - Sepsis Event Vital Signs: Vital Signs - 24 hr 05/03/18 05/03/18 05/03/18 13:33 14:06 14:12 Heart Rate 83 82 80 Respiratory 26 H 20 10 L Rate Blood Pressure 144/97 H 141/97 H O2 Saturation 95 100 05/03/18 05/03/18 05/03/18 14:30 15:39 16:21 Heart Rate 84 89 90 Respiratory 16 16 16 Rate Blood Pressure 141/97 H 164/105 H 149/92 H O2 Saturation 99 100 96 Oxygen O2 Source Room air Oxygen Flow Rate 8 Departure - Departure Disposition: 01 Home, Self Care Clinical Impression: Dyspnea Qualifiers: Dyspnea type: dyspnea on exertion Qualified Code(s): R06.09 - Other forms of dyspnea Condition: Stable Record reviewed to determine appropriate education?: Yes Instructions: ED Dyspnea Shortness of Breath Follow-Up: Quiana Loomis MD [Provider Admit Priv/Credential] - Prescriptions: Albuterol Sulf [Ventolin Hfa Inhaler] 1 - 2 puffs INH Q4HR PRN #1 inhaler PRN Reason: Shortness Of Air/Wheezing Comments: I talked with Dr. Harden who agreed with adding an albuterol inhaler 2 puffs 3-4 times a day for the next week and then as needed for shortness of breath. This sounded likely to be a wheezing episode for the lungs. Dr. Harden might arrange an ultrasound of your heart to make sure you are not having heart problems as a cause. Continue usual treatments. Discharge Date/Time: 05/03/18 16:30
[2018-05-03] MEDS ORDERED: ALBUTEROL NEB 2.5 MG/3 ML INH STA (13:47)
[2018-05-03 14:49] LABS: BASOPHILS # (AUTO) 0.1 10^3/uL (0.0-0.1); BASOPHILS % (AUTO) 1.3 %; EOSINOPHILS # (AUTO) 0.4 10^3/uL (0.0-0.7); EOSINOPHILS % (AUTO) 8.3 %; HGB - HEMOGLOBIN 9.6 g/dL (14.0-18.0); LYMPHOCYTES # (AUTO) 0.6 10^3/uL (1.5-3.5); LYMPHOCYTES % (AUTO) 12.3 %; MEAN CORPUSCULAR HEMOGLOBIN 35.9 pg (27.0-31.0); MEAN CORPUSCULAR HGB CONC 34.2 g/dL (32.0-36.0); MEAN CORPUSCULAR VOLUME 104.9 fL (80.0-94.0); MEAN PLATELET VOLUME 8.4 fL (7.4-11.4); MONOCYTES # (AUTO) 0.4 10^3/uL (0.0-1.0); MONOCYTES % (AUTO) 7.5 %; NEUTROPHILS # (AUTO) 3.7 10^3/uL (1.5-6.6); NEUTROPHILS % (AUTO) 70.6 %; PLT - PLATELET COUNT 108 10^3/uL (130-450); RED BLOOD COUNT 2.69 10^6/uL (4.70-6.10); RED CELL DISTRIBUTION WIDTH 16.5 % (12.0-15.0); WHITE BLOOD COUNT 5.3 x10^3/uL (4.8-10.8)
[2018-05-03 15:01] LABS: ALBUMIN 3.9 g/dL (3.2-5.5); ALBUMIN/GLOBULIN RATIO 1.2 (1.0-2.2); CALCIUM 8.7 mg/dL (8.5-10.3); CREATININE 3.4 mg/dL (0.6-1.2); MAGNESIUM 1.9 mg/dL (1.7-2.8); TOTAL PROTEIN 7.1 g/dL (6.7-8.2)
--- NOTE | 2018-05-03 15:13 | XRAY Report ---
Reason: chest pain left sided Procedure Date: 05/03/2018 Accession Number: [id number] / [id number] Procedure: XR - Chest 2 View X-Ray CPT Code: 24516 FULL RESULT: EXAM: CHEST RADIOGRAPHY EXAM DATE: 05/03/2018 03:02 PM. CLINICAL HISTORY: Chest pain. COMPARISON: CHEST 2 VIEW 01/25/2018. TECHNIQUE: 2 views. FINDINGS: Lungs/Pleura: Mild pleural scarring versus minimal effusions appear stable. Pulmonary vascularity is borderline prominent. There is no pneumothorax or consolidation. Mediastinum: Cardiac silhouette is enlarged but stable. Other: None. IMPRESSION: Borderline CHF/fluid overload. RADIA
[2018-05-03 16:21] VITALS: BP 149/92
== END 2018-05-03 16:30 | disposition home or self-care (01) ==
LOC: EDUNIT# → ED 13:26
DX: R06.09 Other forms of dyspnea (principal); I10 Essential (primary) hypertension; N28.9 Disorder of kidney and ureter, unspecified; I45.81 Long QT syndrome; Z99.2 Dependence on renal dialysis
CPT/HCPCS: 36415; 71046; 80053; 83690; 83735; 83880; 85025; 85379; 93005; 94640; 99283; 99284

== ENCOUNTER 2018-11-08 12:36 | Outpatient (CLI) | payer MEDICAID | END 2018-11-08 12:37 | disposition critical access hospital (66) | LOC: EMS 12:36 | PROVIDERS: ATTEND Surgery | DX: R07.2 Precordial pain (principal); M25.512 Pain in left shoulder | CPT/HCPCS: A0425; A0427; A0999 ==

== ENCOUNTER 2018-11-08 12:58 | Emergency (ER) | payer MEDICAID ==
--- NOTE | 2018-11-08 13:40 | ED Physician Documentation ---
PD HPI CHEST PAIN - Stated complaint Stated Complaint: CP - Chief complaint Chief Complaint: Cardiac - History obtained from History obtained from: Patient, Family - History of Present Illness Timing - onset: How many hours ago (2.5) Timing - onset during: Other (at the end of dialysis) Timing - duration: Hours (2.5) Timing - details: Gradual onset Pain level max: 5 Pain level now: 3 Quality: Aching, Pain Location: Left shoulder/arm Radiation: Other (non-radiating) Improved by: Rest, ASA Worsened by: Movement, Palpation Associated symptoms: No: Shortness of air, Diaphoresis, Nausea, Vomiting, Feeling faint / dizzy, General Weakness, Palpitations, Cough Similar symptoms before: Has not had sx before Recently seen: Not recently seen Review of Systems Constitutional: denies: Fever, Chills Throat: denies: Sore throat Respiratory: denies: Cough : denies: Dysuria Skin: denies: Rash Musculoskeletal: denies: Neck pain, Back pain Neurologic: denies: Headache PD PAST MEDICAL HISTORY - Past Medical History Cardiovascular: Hypertension Respiratory: None Endocrine/Autoimmune: None : Renal insuffiency, Other Musculoskeletal: Gout Derm: None - Past Surgical History Past Surgical History: No - Present Medications Home Medications: Ambulatory Orders Medication Instructions Recorded Confirmed Acetaminophen [Tylenol] 325 mg PO PRN 08/26/17 Allopurinol 08/26/17 Amino AC/Protein Hydr/Whey Pro 30 ml 08/26/17 [Liquacel Liq Protein Pump-Go] Darbepoetin [Aranesp] 60 mcg IVP 08/26/17 Paricalcitol [Zemplar] 6 mcg PO 08/26/17 Vit B Comp No.3/Folic/C/Biotin 1 tab PO DAILY 08/26/17 08/26/17 [Yary-Cris Rx Tablet] hydrOXYzine pamoate [Hydroxyzine 25 mg PO PRN 08/26/17 Pamoate] Benzonatate [Tessalon Perle] 100 mg PO BID PRN #10 capsule 10/20/17 Erythromycin Base [Erythromycin 3.5 gm OP QID #1 oint...g. 10/20/17 Ophthalmic Ointment] Albuterol Sulf [Ventolin Hfa 1 - 2 puffs INH Q4HR PRN #1 inhaler 10/27/17 Inhaler] Azithromycin [Zithromax] 250 mg PO DAILY #6 tablet 10/27/17 Benzonatate [Tessalon] 100 mg PO TID PRN #20 capsule 10/27/17 Dexamethasone [Decadron] 4 mg PO DAILY #5 tablet 10/27/17 HYDROcod/ACETAM 5/325 [[place] 5/325] 1 tab PO Q6H PRN #15 tablet 10/27/17 Magic Mouthwash 5 ml PO Q4H PRN #150 ml 01/25/18 Albuterol Sulf [Ventolin Hfa 1 - 2 puffs INH Q4HR PRN #1 inhaler 05/03/18 Inhaler] - Allergies Allergies/Adverse Reactions: Allergies Allergy/AdvReac Type Severity Reaction Status Date / Time No Known Drug Allergies Allergy Verified 03/28/18 22:27 - Social History Does the pt smoke?: No Smoking Status: Never smoker Does the pt drink ETOH?: No Does the pt have substance abuse?: No - Immunizations Immunizations are current?: No - POLST Patient has POLST: No PD ED PE NORMAL - Vitals Vital signs reviewed: Yes - General General: Alert and oriented X 3, No acute distress - HEENT HEENT: PERRL, Moist mucous membranes - Neck Neck: Supple, no meningeal sign - Cardiac Cardiac: RRR, Strong equal pulses, Other (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.) - Respiratory Respiratory: No respiratory distress, Clear bilaterally - Abdomen Abdomen: Soft, Non tender, Non distended - Back Back: No spinal TTP - Derm Derm: Warm and dry - Extremities Extremities: No calf tenderness / cord, Other (TTP over the L shoulder, pain reproduced by moving the shoulder.) - Neuro Neuro: Alert and oriented X 3 - Psych Psych: Normal mood, Normal affect Results - Vitals Vitals: Oxygen O2 Source Room air - EKG (time done) 1302 Rate: Rate (enter#) (68) Rhythm: NSR Intervals: Prolonged SD QRS: Normal Ischemia: Q waves, Non specific changes Compare to prior EKG: Unchanged from prior EKG - Labs Labs: Laboratory Tests 11/08/18 11/08/18 11/08/18 13:40 13:40 13:40 WBC 5.6 RBC 3.53 L Hgb 12.5 L Hct 37.0 L MCV 104.9 H MCH 35.4 H MCHC 33.7 RDW 18.4 H Plt Count 74 L MPV 10.4 Neut # (Auto) 4.1 Lymph # (Auto) 0.5 L [place] # (Auto) 0.4 Eos # (Auto) 0.5 Baso # (Auto) 0.1 Absolute Nucleated RBC 0.00 Nucleated RBC % 0.1 Sodium 128 L Potassium 3.6 Chloride 88 L Carbon Dioxide 29 Anion Gap 11.0 BUN 17 Creatinine 4.3 H Estimated GFR (MDRD) 14 L Glucose 82 Calcium 8.6 Total Bilirubin 1.6 H AST 30 ALT 21 Alkaline Phosphatase 100 Troponin I 0.10 Total Protein 7.7 Albumin 4.7 Globulin 3.0 Albumin/Globulin Ratio 1.6 Lipase 61 H 11/08/18 16:09 WBC RBC Hgb Hct MCV MCH MCHC RDW Plt Count MPV Neut # (Auto) Lymph # (Auto) [place] # (Auto) Eos # (Auto) Baso # (Auto) Absolute Nucleated RBC Nucleated RBC % Sodium Potassium Chloride Carbon Dioxide Anion Gap BUN Creatinine Estimated GFR (MDRD) Glucose Calcium Total Bilirubin AST ALT Alkaline Phosphatase Troponin I 0.09 Total Protein Albumin Globulin Albumin/Globulin Ratio Lipase - Rads (name of study) cxr Radiology: Prelim report reviewed, EMP read contemporaneously, See rad report (Cardiomegaly, pulmonary venous congestion. Bibasilar atelectasis/scarring. Small bilateral effusions.) PD MEDICAL DECISION MAKING - ED course Complexity details: reviewed results, re-evaluated patient, considered differential (No ST elevation [place], no aortic dissection, no PE, no tension pneumothorax, no aortic aneurysm), d/w patient ED course: 68-year-old male with left shoulder/chest pain today. After being in the emergency department for a while he remember that he fell on that left shoulder earlier today. His pain is reproducible with palpation and movement. Does not seem consistent with cardiac disease. Negative troponin x2. His normal baseline troponin is around 0.10. We will continue supportive care and follow- up with his doctor. Patient and family counseled regarding signs and symptoms for which I believe and urgent re-evaluation would be necessary. Patient with good understanding of and agreement to plan and is comfortable going home at this time This document was made in part using voice recognition software. While efforts are made to proofread this document, sound alike and grammatical errors may occur. Departure - Departure Disposition: 01 Home, Self Care Clinical Impression: Chest wall pain, Atypical chest pain Condition: Good Instructions: ED Chest Pain Atypical Unkn Cause, ED Strain Chest Wall Follow-Up: your,doctor in 3 days [Other] Comments: Your heart tests are normal today. Follow-up with your doctor for further care. You should have a cardiac stress test. This should be done next week. Return if you worsen Discharge Date/Time: 11/08/18 16:47
[2018-11-08 13:53] LABS: BASOPHILS # (AUTO) 0.1 10^3/uL (0.0-0.1); BASOPHILS % (AUTO) 1.1 %; EOSINOPHILS # (AUTO) 0.5 10^3/uL (0.0-0.7); EOSINOPHILS % (AUTO) 9.1 %; HGB - HEMOGLOBIN 12.5 g/dL (14.0-18.0); LYMPHOCYTES # (AUTO) 0.5 10^3/uL (1.5-3.5); MEAN CORPUSCULAR HEMOGLOBIN 35.4 pg (27.0-31.0); MEAN CORPUSCULAR HGB CONC 33.7 g/dL (32.0-36.0); MEAN CORPUSCULAR VOLUME 104.9 fL (80.0-94.0); MEAN PLATELET VOLUME 10.4 fL (7.4-11.4); MONOCYTES # (AUTO) 0.4 10^3/uL (0.0-1.0); MONOCYTES % (AUTO) 7.6 %; NEUTROPHILS # (AUTO) 4.1 10^3/uL (1.5-6.6); NEUTROPHILS % (AUTO) 73.2 %; PLT - PLATELET COUNT 74 10^3/uL (130-450); RED BLOOD COUNT 3.53 10^6/uL (4.70-6.10); RED CELL DISTRIBUTION WIDTH 18.4 % (12.0-15.0); WHITE BLOOD COUNT 5.6 x10^3/uL (4.8-10.8)
[2018-11-08 14:10] LABS: ALBUMIN 4.7 g/dL (3.2-5.5); ALBUMIN/GLOBULIN RATIO 1.6 (1.0-2.2); BILIRUBIN,TOTAL 1.6 mg/dL (0.2-1.0); CALCIUM 8.6 mg/dL (8.5-10.3); CREATININE 4.3 mg/dL (0.6-1.2); TOTAL PROTEIN 7.7 g/dL (6.7-8.2)
--- NOTE | 2018-11-08 15:16 | XRAY Report ---
Reason: Chest Pain Procedure Date: 11/08/2018 Accession Number: [id number] / [id number] Procedure: XR - Chest 1 View X-Ray CPT Code: 34227 FULL RESULT: EXAM: CHEST RADIOGRAPHY EXAM DATE: 11/08/2018 02:51 PM. CLINICAL HISTORY: Chest Pain. COMPARISON: CHEST 2 VIEW 05/03/2018 2:55 PM. TECHNIQUE: 1 view. FINDINGS: Lungs/Pleura: Pulmonary vascularity appears increased. Bibasilar atelectasis/scarring. Small bilateral pleural effusions. No pneumothorax. Mediastinum: Stable cardiomegaly ectatic aorta Other: None. IMPRESSION: 1. Cardiomegaly, pulmonary venous congestion. 2. Bibasilar atelectasis/scarring. 3. Small bilateral effusions RADIA
[2018-11-08 16:46] VITALS: BP 118/77
== END 2018-11-08 16:47 | disposition home or self-care (01) ==
LOC: EDUNIT# → ED 12:58
DX: R07.89 Other chest pain (principal); I10 Essential (primary) hypertension; N28.9 Disorder of kidney and ureter, unspecified; Z99.2 Dependence on renal dialysis
CPT/HCPCS: 36415; 71045; 80053; 83690; 84484; 85025; 93005; 99283; 99284

== ENCOUNTER 2019-01-17 14:41 | Emergency (ER) | payer MEDICAID ==
--- NOTE | 2019-01-17 15:31 | ED Physician Documentation ---
History of Present Illness - Stated complaint Stated Complaint: MALE - Chief complaint Chief Complaint: General - History obtained from History obtained from: Family - History of Present Illness Timing: Other (68-year-old gentleman in dialysis, Monday, , Monday. He also had an extra run this Monday I presume for some fluid overload. He presents accompanied by his daughters for somnolence that is been going on for 2 weeks, and since yesterday testicular swelling and hematuria. The patient is complaining of the testicular swelling and some pain there. No vomiting.) Review of Systems Unable to obtain: Other (He is very somnolent) PD PAST MEDICAL HISTORY - Past Medical History Cardiovascular: Hypertension Respiratory: None Endocrine/Autoimmune: None : Renal insuffiency, Other Musculoskeletal: Gout Derm: None - Past Surgical History Past Surgical History: No - Present Medications Home Medications: Ambulatory Orders Medication Instructions Recorded Confirmed Acetaminophen [Tylenol] 325 mg PO PRN 08/26/17 Allopurinol 08/26/17 Amino AC/Protein Hydr/Whey Pro 30 ml 08/26/17 [Liquacel Liq Protein Pump-Go] Darbepoetin [Aranesp] 60 mcg IVP 08/26/17 Paricalcitol [Zemplar] 6 mcg PO 08/26/17 Vit B Comp No.3/Folic/C/Biotin 1 tab PO DAILY 08/26/17 08/26/17 [Yary-Cris Rx Tablet] hydrOXYzine pamoate [Hydroxyzine 25 mg PO PRN 08/26/17 Pamoate] Benzonatate [Tessalon Perle] 100 mg PO BID PRN #10 capsule 10/20/17 Erythromycin Base [Erythromycin 3.5 gm OP QID #1 oint...g. 10/20/17 Ophthalmic Ointment] Albuterol Sulf [Ventolin Hfa 1 - 2 puffs INH Q4HR PRN #1 inhaler 10/27/17 Inhaler] Azithromycin [Zithromax] 250 mg PO DAILY #6 tablet 10/27/17 Benzonatate [Tessalon] 100 mg PO TID PRN #20 capsule 10/27/17 HYDROcod/ACETAM 5/325 [[place] 5/325] 1 tab PO Q6H PRN #15 tablet 10/27/17 dexAMETHasone [Decadron] 4 mg PO DAILY #5 tablet 10/27/17 Magic Mouthwash 5 ml PO Q4H PRN #150 ml 01/25/18 Albuterol Sulf [Ventolin Hfa 1 - 2 puffs INH Q4HR PRN #1 inhaler 05/03/18 Inhaler] - Allergies Allergies/Adverse Reactions: Allergies Allergy/AdvReac Type Severity Reaction Status Date / Time No Known Drug Allergies Allergy Verified 01/17/19 14:58 - Social History Does the pt smoke?: No Smoking Status: Never smoker Does the pt drink ETOH?: No Does the pt have substance abuse?: No - Immunizations Immunizations are current?: No - POLST Patient has POLST: No PD ED PE NORMAL - Vitals Vital signs reviewed: Yes - General General: Other (He wakes up and answer simple questions but then falls right back to sleep) - HEENT HEENT: PERRL, EOMI - Neck Neck: Supple, no meningeal sign, No bony TTP - Cardiac Cardiac: RRR, No murmur - Respiratory Respiratory: No respiratory distress, Clear bilaterally - Abdomen Abdomen: Other (Somewhat distended abdomen without tenderness) - Male Male : Other (Scrotum is diffusely swollen, probably from fluid, I am unable to identify the testicle specifically. There is some tenderness diffusely.) - Derm Derm: Normal color, Warm and dry - Extremities Extremities: Other (Moderate bilateral pitting pedal edema) Results - Vitals Vitals: Vital Signs - 24 hr 01/17/19 01/17/19 01/17/19 14:54 17:17 19:03 Temperature 36.9 C Heart Rate 100 107 H 104 H Respiratory 14 18 20 Rate Blood Pressure 139/97 H 139/92 H O2 Saturation 100 95 99 Oxygen O2 Source Room air - Labs Labs: Laboratory Tests 01/17/19 01/17/19 01/17/19 15:39 15:39 16:58 WBC 14.8 H RBC 3.57 L Hgb 12.1 L Hct 37.1 L MCV 104.0 H MCH 33.8 H MCHC 32.5 RDW 17.4 H Plt Count 44 L MPV 8.9 Neut # (Auto) 13.7 H Lymph # (Auto) 0.4 L [place] # (Auto) 0.6 Eos # (Auto) 0.0 Baso # (Auto) 0.1 Absolute Nucleated RBC 0.00 Band Neuts % (Manual) Not Reportable Abnorm Lymph % (Manual) Not Reportable Nucleated RBC % 0.0 Neutrophils # (Manual) Not Reportable Lymphocytes # (Manual) Not Reportable Monocytes # (Manual) Not Reportable Eosinophils # (Manual) Not Reportable Basophils # (Manual) Not Reportable Differential Comment MANUAL=AUTO DIFF Manual Slide Review Indicated Platelet Estimate DECREASED (<130,000) Platelet Morphology NORMAL APPEARANCE RBC Morph Micro Appear NORMAL APPEARANCE Sodium 132 L Potassium 4.3 Chloride 92 L Carbon Dioxide 26 Anion Gap 14.0 H BUN 29 H Creatinine 4.2 H Estimated GFR (MDRD) 14 L Glucose 92 Calcium 8.8 Total Bilirubin 2.5 H AST 36 ALT 22 Alkaline Phosphatase 103 Total Protein 7.2 Albumin 3.9 Globulin 3.3 Albumin/Globulin Ratio 1.2 Lipase 48 Urine Color RED/BLOODY Urine Clarity BLOODY Urine pH 8.0 H Ur Specific [place] 1.015 Urine Protein 100 H Urine Glucose (UA) NEGATIVE Urine Ketones NEGATIVE Urine Occult Blood LARGE H Urine Nitrite NEGATIVE Urine Bilirubin NEGATIVE Urine Urobilinogen 0.2 (NORMAL) Ur Leukocyte Esterase MODERATE H Urine RBC TNTC H Urine WBC >25 H Urine WBC Clumps PRESENT Ur Squamous Epith Cells NONE SEEN Urine Bacteria None Seen Ur Microscopic Review INDICATED Urine Culture Comments INDICATED - Rads (name of study) CT A/P Radiology: EMP read contemporaneously (Anasarca with mild ascites and small pleural effusions with atrophic appearing kidneys. Cardiomegaly. Possible cirrhosis and possible left renal nodule.) PD MEDICAL DECISION MAKING - ED course ED course: 68-year-old gentleman on dialysis presents with somnolence and testicular swelling. He looks fluid overloaded despite having finished dialysis this morning. His work-up demonstrates a modest white counts, basically unremarkable electrolytes, testing consistent with anasarca and a UTI. I spoke with his glost tile shader, Dr. Loomis. The family would like to take him home (i.e. prefer no admit/xfer). What we agreed on is that we would do blood cultures and urine cultures here and give him cefepime and vancomycin. They will call the kidney center tomorrow and he will get extra dialysis tomorrow and peridialysis antibiotics based on culture results. Departure - Departure Disposition: 01 Home, Self Care Clinical Impression: ESRD (end stage renal disease), Status post dialysis, Peripheral edema, Scrotal edema UTI (urinary tract infection) Qualifiers: Urinary tract infection type: site unspecified Hematuria presence: with hematuria Qualified Code(s): N39.0 - Urinary tract infection, site not specified Condition: Stable Record reviewed to determine appropriate education?: Yes Comments: He will need extra dialysis tomorrow, call the kidney center tomorrow morning to arrange this. Dr. Loomis is aware and will likely prescribe antibiotics to get during dialysis. Return if worse or if running a fever.
[2019-01-17 15:48] LABS: BASOPHILS # (AUTO) 0.1 10^3/uL (0.0-0.1); BASOPHILS % (AUTO) 0.7 %; EOSINOPHILS % (AUTO) 0.1 %; HGB - HEMOGLOBIN 12.1 g/dL (14.0-18.0); LYMPHOCYTES # (AUTO) 0.4 10^3/uL (1.5-3.5); LYMPHOCYTES % (AUTO) 2.5 %; MEAN CORPUSCULAR HEMOGLOBIN 33.8 pg (27.0-31.0); MEAN CORPUSCULAR HGB CONC 32.5 g/dL (32.0-36.0); MEAN PLATELET VOLUME 8.9 fL (7.4-11.4); MONOCYTES # (AUTO) 0.6 10^3/uL (0.0-1.0); MONOCYTES % (AUTO) 3.7 %; NEUTROPHILS # (AUTO) 13.7 10^3/uL (1.5-6.6); PLT - PLATELET COUNT 44 10^3/uL (130-450); RED BLOOD COUNT 3.57 10^6/uL (4.70-6.10); RED CELL DISTRIBUTION WIDTH 17.4 % (12.0-15.0); WHITE BLOOD COUNT 14.8 x10^3/uL (4.8-10.8)
[2019-01-17 15:57] LABS: ALBUMIN 3.9 g/dL (3.2-5.5); ALBUMIN/GLOBULIN RATIO 1.2 (1.0-2.2); BILIRUBIN,TOTAL 2.5 mg/dL (0.2-1.0); CALCIUM 8.8 mg/dL (8.5-10.3); CREATININE 4.2 mg/dL (0.6-1.2); TOTAL PROTEIN 7.2 g/dL (6.7-8.2)
[2019-01-17 16:18] LABS: DIFFERENTIAL COMMENT MANUAL=AUTO DIFF; PLATELET ESTIMATE, MANUAL DECREASED (<130,000) (NORMAL); PLATELET MORPHOLOGY NORMAL APPEARANCE (NORMAL); RBC MORPHOLOGY (MULTIPLE) NORMAL APPEARANCE (NORMAL)
--- NOTE | 2019-01-17 16:51 | CT Report ---
Reason: abd swelling Procedure Date: 01/17/2019 Accession Number: [id number] / [id number] Procedure: CT - Abdomen/Pelvis WO CPT Code: FULL RESULT: EXAM: CT ABDOMEN AND PELVIS EXAM DATE: 01/17/2019 03:49 PM. CLINICAL HISTORY: Abd swelling. COMPARISONS: None. TECHNIQUE: Routine helical CT imaging was performed through the abdomen and pelvis. IV contrast: None. Enteric contrast: No. Reconstructions: Coronal and sagittal. In accordance with CT protocol optimization, one or more of the following dose reduction techniques were utilized for this exam: automated exposure control, adjustment of mA and/or KV based on patient size, or use of iterative reconstructive technique. FINDINGS: Lung Bases: Small pleural effusions. Trace pericardial effusion. Moderate cardiomegaly. Liver: There may be subtle irregularity of the liver surface. Otherwise unremarkable. Gallbladder/Bile Ducts: Unremarkable. Spleen: Normal. Pancreas: Normal. Adrenal Glands: Normal. Kidneys: Small kidneys. No hydronephrosis. Small fluid collection versus exophytic nodule arising from left mid kidney, versus artifact. Peritoneal Cavity/Bowel: Mild ascites. Generalized hazy infiltration of fat. No bowel dilation, free air, or lymphadenopathy. Unremarkable region of appendix. Pelvic Organs: Normal. The bladder and visualized pelvic organs are within normal limits. Vasculature: Extensive vascular calcification. Small saccular aneurysm of distal abdominal aorta measuring 3.0 cm. Bones: Degenerative changes. Other: Anasarca. Small left inguinal hernia with fat involvement only. IMPRESSION: 1. Anasarca, mild ascites, and small pleural effusions in the presence of small atrophic appearing kidneys, most likely fluid retention due to renal failure. 2. Cardiomegaly; cannot exclude an element of congestive heart failure. 3. Questionable irregularity of the liver surface suggesting possible cirrhosis. 4. Possible left renal nodule or fluid collection versus artifact. Other incidental or chronic findings as noted. RADIA
--- NOTE | 2019-01-17 17:14 | Ultrasound Report ---
Reason: testicular swelling Procedure Date: 01/17/2019 Accession Number: [id number] / [id number] Procedure: US - Testicle w/Doppler CPT Code: FULL RESULT: US: US SCROTUM WITH DOPPLER EXAM: SCROTAL ULTRASOUND WITH DOPPLER EXAM DATE: 01/17/2019 04:08 PM. CLINICAL HISTORY: Testicular swelling. COMPARISON: None. TECHNIQUE: Real time sonographic grayscale and color/spectral Doppler images of the scrotum with static images were obtained. Spectral Doppler was used to completely evaluate the testicular vasculature for torsion. FINDINGS: Right: Testis: 3.5 x 2.1 x 2.2 cm. Normal size and echotexture. No mass. No calcification. Normal arterial and venous flow present. Epididymis: 1 x 0.9 x 1.2 cm. Normal size and echotexture. No mass. Normal blood flow is present. Hydrocele: Small Varicocele: None. Testis: 3.3 x 2.0 x 2.3 cm. Normal size and echotexture. No mass. No calcification. Normal arterial and venous flow present. Epididymis: 1.1 x 0.7 x 1.1 cm. Normal size and echotexture. No mass. Normal blood flow is present. Hydrocele: Small to moderate Varicocele: None. No inguinal hernia visualized. IMPRESSION: 1. Testicles are normal in size. Normal blood flow identified in both testicles without evidence of acute torsion. 2. Small right and small to moderate left hydrocele. RADIA
[2019-01-17 17:20] LABS: BILIRUBIN,URINE NEGATIVE (NEGATIVE); GLUCOSE, URINE (UA) NEGATIVE (NEGATIVE); KETONES,URINE (UA) NEGATIVE (NEGATIVE); LEUKOCYTE ESTERASE, URINE MODERATE (NEGATIVE); NITRITE,URINE NEGATIVE (NEGATIVE); OCCULT BLOOD,URINE LARGE (NEGATIVE); PROTEIN,URINE 100 mg/dL (NEGATIVE); UROBILINOGEN,URINE 0.2 (NORMAL) E.U./dL (NORMAL)
[2019-01-17 17:34] LABS: CLARITY,URINE BLOODY (CLEAR)
[2019-01-17 17:36] LABS: BACTERIA,URINE None Seen /HPF (None Seen); RBC,URINE TNTC /HPF (0-5); SQUAMOUS EPITHELIAL CELL,UR NONE SEEN (<= Few); WBC CLUMPS,URINE PRESENT
[2019-01-17] MEDS ORDERED: VANCOMYCIN INJ 1.5 GM in SODIUM CHLORIDE 0.9% 500 ML IV STA (17:50)
[2019-01-17] MEDS ORDERED: CEFEPIME 2 GM in SODIUM CHLORIDE 0.9% MINIBAG 100 ML IV STA (17:50)
[2019-01-17 20:52] VITALS: BP 145/78
== END 2019-01-17 20:51 | disposition home or self-care (01) ==
LOC: ED 14:41
DX: I12.0 Hypertensive chronic kidney disease with stage 5 chronic kidney disease or end stage renal disease (principal); N18.6 End stage renal disease; Z99.2 Dependence on renal dialysis; N39.0 Urinary tract infection, site not specified; N50.89 Other specified disorders of the male genital organs; R60.0 Localized edema
CPT/HCPCS: 36415; 74176; 76870; 80053; 81001; 81599; 83690; 85025; 87040; 87077; 87086; 87181; 93975; 96365; 96367; 99283; 99284; J3370; 81003

== ENCOUNTER 2019-04-20 14:48 | Emergency (ER) | payer MEDICAID ==
--- NOTE | 2019-04-20 16:20 | XRAY Report ---
Reason: High HR Procedure Date: 04/20/2019 Accession Number: [id number] / [id number] Procedure: XR - Chest 1 View X-Ray CPT Code: 11907 FULL RESULT: EXAM: CHEST RADIOGRAPHY EXAM DATE: 04/20/2019 03:34 PM. CLINICAL HISTORY: Tachycardia. COMPARISON: CHEST 1 VIEW 11/08/2018 2:39 PM. TECHNIQUE: 1 view. FINDINGS: Lungs/Pleura: Minimal linear opacity lateral right base is unchanged. There is some blunting of the left costophrenic sulcus which could represent a chronic small effusion or other pleural thickening. No new acute opacities evident. The pulmonary vascular is within normal limits. Mediastinum: Mild to moderately enlarged as before. Other: None. IMPRESSION: 1. Small chronic left effusion versus other pleural thickening unchanged. 2. Tiny scar lateral right base unchanged. 3. Mild to moderate cardiac enlargement as before. No acute edema. RADIA
[2019-04-20] MEDS ORDERED: diltiaZEM INJ 5 MG/ML VIAL IVP STA ×2 (17:27→20:45)
--- NOTE | 2019-04-20 17:29 | ED Physician Documentation ---
PD HPI CHEST PAIN - Stated complaint Stated Complaint: RAPID HEARTBEAT - Chief complaint Chief Complaint: Cardiac - History obtained from History obtained from: Patient, Family - History of Present Illness Timing - onset: Other (68-year-old gentleman with history of end-stage renal disease has been feeling more short of breath and normal for the last week or 2 and was noted to have high heart rates in dialysis this week. He denies chest pain but has some heaviness with walking.) Review of Systems Ten Systems: 10 systems reviewed and negative Constitutional: denies: Fever, Chills Nose: denies: Rhinorrhea / runny nose, Congestion Cardiac: denies: Palpitations, Pedal edema, Calf pain Respiratory: reports: Dyspnea. denies: Cough PD PAST MEDICAL HISTORY - Past Medical History Past Medical History: Yes Cardiovascular: Hypertension Respiratory: None Endocrine/Autoimmune: None : Renal insuffiency, Other Musculoskeletal: Gout Derm: None - Past Surgical History Past Surgical History: No - Present Medications Home Medications: Ambulatory Orders Medication Instructions Recorded Confirmed Acetaminophen [Tylenol] 325 mg PO PRN 08/26/17 Allopurinol 100 mg PO BID 08/26/17 Albuterol Sulf [Ventolin Hfa 1 - 2 puffs INH Q4HR PRN #1 inhaler 05/03/18 Inhaler] Sevelamer Carbonate [Renvela] 2 tab PO TIDWM 04/20/19 04/20/19 - Allergies Allergies/Adverse Reactions: Allergies Allergy/AdvReac Type Severity Reaction Status Date / Time No Known Drug Allergies Allergy Verified 04/20/19 22:18 - Social History Does the pt smoke?: No Smoking Status: Never smoker Does the pt drink ETOH?: No Does the pt have substance abuse?: No - Family History Family history: reports: Non contributory - Immunizations Immunizations are current?: No - POLST Patient has POLST: No PD ED PE NORMAL - Vitals Vital signs reviewed: Yes - General General: Alert and oriented X 3, No acute distress - HEENT HEENT: PERRL, EOMI - Neck Neck: Supple, no meningeal sign, No bony TTP - Cardiac Cardiac: Strong equal pulses, Other (Irregularly irregular without murmur) - Respiratory Respiratory: Other (Mildly rhonchorous throughout with good air motion, nonlabored) - Abdomen Abdomen: Non tender - Back Back: No CVA TTP, No spinal TTP - Derm Derm: Normal color, Warm and dry - Extremities Extremities: No edema, No calf tenderness / cord - Neuro Neuro: Alert and oriented X 3, Normal speech Results - Vitals Vitals: Vital Signs - 24 hr 04/20/19 04/20/19 04/20/19 14:53 19:55 20:54 Temperature 36.6 C Heart Rate 118 H 138 H 82 Respiratory 20 20 18 Rate Blood Pressure 144/88 H 130/99 H 117/79 O2 Saturation 93 94 99 04/20/19 04/20/19 04/20/19 21:33 22:17 22:49 Temperature 36.7 C Heart Rate 91 81 84 Respiratory 26 H 24 17 Rate Blood Pressure 132/81 H 136/92 H 100/71 O2 Saturation 96 96 96 Oxygen O2 Source Room air - EKG (time done) 1504 Rate: Rate (enter#) (115) Rhythm: Atrial fibrillation [place]: Normal QRS: Normal Ischemia: Q waves (lateral/ant) Computer interpretation: Agree with computer 2104 Rate: Rate (enter#) (82) Rhythm: NSR [place]: Normal Intervals: Prolonged [place] QRS: Normal Ischemia: Q waves (Lateral and anterior) Computer interpretation: Agree with computer - Labs Labs: Laboratory Tests 04/20/19 04/20/19 04/20/19 20:49 20:49 20:49 WBC 6.5 RBC 2.46 L Hgb 9.2 L Hct 26.2 L MCV 106.5 H MCH 37.4 H MCHC 35.1 RDW 14.4 Plt Count 92 L MPV 9.7 Neut # (Auto) 5.1 Lymph # (Auto) 0.4 L [place] # (Auto) 0.6 Eos # (Auto) 0.3 Baso # (Auto) 0.0 Absolute Nucleated RBC 0.00 Nucleated RBC % 0.0 Sodium 133 L Potassium 4.2 Chloride 95 L Carbon Dioxide 29 Anion Gap 9.0 BUN 17 Creatinine 4.2 H Estimated GFR (MDRD) 14 L Glucose 105 H Calcium 8.6 Total Bilirubin 1.0 AST 19 ALT 13 Alkaline Phosphatase 123 H Troponin I High Sens 83.1 H* B-Natriuretic Peptide Total Protein 6.5 L Albumin 3.2 Globulin 3.3 Albumin/Globulin Ratio 1.0 Lipase 44 TSH 04/20/19 04/20/19 04/20/19 20:49 20:49 22:00 WBC RBC Hgb Hct MCV MCH MCHC RDW Plt Count MPV Neut # (Auto) Lymph # (Auto) [place] # (Auto) Eos # (Auto) Baso # (Auto) Absolute Nucleated RBC Nucleated RBC % Sodium Potassium Chloride Carbon Dioxide Anion Gap BUN Creatinine Estimated GFR (MDRD) Glucose Calcium Total Bilirubin AST ALT Alkaline Phosphatase Troponin I High Sens 90.4 H* B-Natriuretic Peptide > 9000 H Total Protein Albumin Globulin Albumin/Globulin Ratio Lipase TSH 3.18 - Rads (name of study) 1v chest Radiology: EMP read contemporaneously (Small chronic left pleural effusion versus pleural thickening that is unchanged and right basilar scar unchanged. Mild cardiac enlargement without edema.) PD MEDICAL DECISION MAKING - ED course ED course: 68-year-old gentleman presents with new onset rapid atrial fibrillation. It is symptomatic. The time course is unclear, it may have been going on for a couple of weeks, he is not anticoagulated so it is not safe to consider immediate cardioversion. He was difficult for IV access, the nurses tried and failed; I also tried with sono. Eventually he refused further attempts at IV access so we will try to treat him orally. He was given oral Cardizem, but lab could not even draw him which we needed of course, and the Cardizem did not really help his tachycardia at all and as such I was able to place a 20-gauge IV in the right deep brachial vein after above delay using real-time ultrasound guidance. However subsequent to that that it IV immediately below and a 20-gauge IV was placed in left external jugular very easily. After a single dose of IV Cardizem he converted to sinus rhythm. He was feeling better. His high-sensitivity troponin came back high but note that he is a renal patient so this may be his baseline. We will redraw it. I did talk with Dr. Conner for formal rule out which he felt would be better done in the ER. A second troponin trended very slightly up. I discussed the case by phone with Fausto Matos, a supervisor customer records division in [place] who felt that this was actually a negative delta and as such could be safely discharged home. Departure - Departure Disposition: 01 Home, Self Care Clinical Impression: ESRD (end stage renal disease) Chest pain Qualifiers: Chest pain type: unspecified Qualified Code(s): R07.9 - Chest pain, unspecified Atrial fibrillation Qualifiers: Atrial fibrillation type: paroxysmal Qualified Code(s): I48.0 - Paroxysmal atrial fibrillation Condition: Stable Record reviewed to determine appropriate education?: Yes Instructions: Atrial Fibrillation Dc Comments: Call your doctor to arrange a follow-up appointment, make the next available appointment. In the interim, return anytime if worse or if new symptoms develop.
[2019-04-20] MEDS ORDERED: diltiaZEM CD 120 MG CAPSULE PO STA (18:45)
[2019-04-20 20:56] LABS: BASOPHILS % (AUTO) 0.6 %; EOSINOPHILS # (AUTO) 0.3 10^3/uL (0.0-0.7); EOSINOPHILS % (AUTO) 4.5 %; HGB - HEMOGLOBIN 9.2 g/dL (14.0-18.0); LYMPHOCYTES # (AUTO) 0.4 10^3/uL (1.5-3.5); LYMPHOCYTES % (AUTO) 6.6 %; MEAN CORPUSCULAR HEMOGLOBIN 37.4 pg (27.0-31.0); MEAN CORPUSCULAR HGB CONC 35.1 g/dL (32.0-36.0); MEAN CORPUSCULAR VOLUME 106.5 fL (80.0-94.0); MEAN PLATELET VOLUME 9.7 fL (7.4-11.4); MONOCYTES # (AUTO) 0.6 10^3/uL (0.0-1.0); MONOCYTES % (AUTO) 8.7 %; NEUTROPHILS # (AUTO) 5.1 10^3/uL (1.5-6.6); NEUTROPHILS % (AUTO) 79.1 %; PLT - PLATELET COUNT 92 10^3/uL (130-450); RED BLOOD COUNT 2.46 10^6/uL (4.70-6.10); RED CELL DISTRIBUTION WIDTH 14.4 % (12.0-15.0); WHITE BLOOD COUNT 6.5 x10^3/uL (4.8-10.8)
[2019-04-20 21:11] LABS: ALBUMIN 3.2 g/dL (3.2-5.5); CALCIUM 8.6 mg/dL (8.5-10.3); CREATININE 4.2 mg/dL (0.6-1.2); TOTAL PROTEIN 6.5 g/dL (6.7-8.2)
[2019-04-20 23:08] VITALS: BP 101/70
== END 2019-04-20 23:15 | disposition home or self-care (01) ==
LOC: ED 14:48
DX: I48.0 Paroxysmal atrial fibrillation (principal); I44.0 Atrioventricular block, first degree; R07.89 Other chest pain; I12.0 Hypertensive chronic kidney disease with stage 5 chronic kidney disease or end stage renal disease; N18.6 End stage renal disease; Z99.2 Dependence on renal dialysis
CPT/HCPCS: 36415; 71045; 80053; 83690; 83880; 84443; 84484; 85025; 93005; 96374; 99283; 99284; A9270

== ENCOUNTER 2019-05-02 11:17 | Emergency (ER) | payer MEDICAID ==
--- NOTE | 2019-05-02 13:08 | ED Physician Documentation ---
History of Present Illness - Stated complaint Stated Complaint: ABD PX - Chief complaint Chief Complaint: Abd Pain - Additonal information Additional information: This is a 68-year-old male with end-stage renal disease on hemodialysis who pr esents with abdominal pain and shortness of breath that began during his hemodialysis session today. 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 He was 30 minutes into his dialysis today when he began developing some abdominal pain which is in his epigastrium, as well as some shortness of breath. Patient denies fever or cough. He currently states he feels fine, his abdominal pain and shortness of breath has resolved. His breathing feels normal to him now. He denies chest pain. His daughter notes that he has had a slowly increasing amount of swelling in his abdomen, she denies a known diagnosis of cirrhosis but states that he did drink alcohol in the past. He was seen and had a cardiac work-up for the last 2 weeks, his high sensitive troponin was elevated but stable which appears to be at his baseline from his end-stage renal disease, and after 2 troponins which were relatively unchanged he was discharged home. Review of Systems Constitutional: denies: Fever Nose: denies: Rhinorrhea / runny nose Cardiac: denies: Chest pain / pressure Respiratory: reports: Dyspnea GI: reports: Abdominal Pain : denies: Dysuria Skin: reports: Other (bruising over left arm where fistula is present) Neurologic: denies: Syncope Endocrine: reports: Easy bruising / bleeding PD PAST MEDICAL HISTORY - Past Medical History Cardiovascular: Hypertension Respiratory: None Endocrine/Autoimmune: None : Renal insuffiency, Other Musculoskeletal: Gout Derm: None - Past Surgical History Past Surgical History: No - Present Medications Home Medications: Ambulatory Orders Medication Instructions Recorded Confirmed Acetaminophen [Tylenol] 325 mg PO PRN 08/26/17 Allopurinol 100 mg PO BID 08/26/17 Albuterol Sulf [Ventolin Hfa 1 - 2 puffs INH Q4HR PRN #1 inhaler 05/03/18 Inhaler] Sevelamer Carbonate [Renvela] 2 tab PO TIDWM 04/20/19 04/20/19 - Allergies Allergies/Adverse Reactions: Allergies Allergy/AdvReac Type Severity Reaction Status Date / Time No Known Drug Allergies Allergy Verified 05/02/19 11:45 - Social History Does the pt smoke?: No Smoking Status: Never smoker Does the pt drink ETOH?: No Does the pt have substance abuse?: No - Immunizations Immunizations are current?: No - POLST Patient has POLST: No PD ED PE NORMAL - Vitals Vital signs reviewed: Yes - General General: Alert and oriented X 3 - HEENT HEENT: Atraumatic - Neck Neck: Supple, no meningeal sign - Cardiac Cardiac: RRR - Respiratory Respiratory: No respiratory distress, Other (Bibasilar crackles) - Abdomen Abdomen: Other (Soft, mildly distended, no tenderness palpation in all 4 quadrants and in the epigastrium. No guarding.) - Derm Derm: Warm and dry - Extremities Extremities: No deformity - Neuro Neuro: Alert and oriented X 3, blood splatter analyst 2-12 intact, No motor deficit, No sensory deficit, Normal speech - Psych Psych: Normal mood, Normal affect Results - Vitals Vitals: Vital Signs - 24 hr 05/02/19 05/02/19 05/02/19 11:41 11:45 13:45 Temperature 36.8 C Heart Rate 81 83 79 Respiratory 18 18 18 Rate Blood Pressure 128/78 130/95 H 126/85 H O2 Saturation 99 99 99 05/02/19 16:01 Temperature Heart Rate 85 Respiratory 18 Rate Blood Pressure 149/95 H O2 Saturation 98 Oxygen O2 Source Room air - EKG (time done) 13:11 Other comments: Other comments (Rate 65, rhythm sinus with premature atrial complex. [place] normal, there is T wave flattening in aVL, no ST segment elevation or depression. There is poor R wave progression.) - Labs Labs: Laboratory Tests 05/02/19 05/02/19 05/02/19 13:19 13:19 13:19 WBC 7.1 RBC 2.67 L Hgb 10.0 L Hct 28.3 L MCV 106.0 H MCH 37.5 H MCHC 35.3 RDW 14.3 Plt Count 84 L MPV 11.5 H Neut # (Auto) 5.7 Lymph # (Auto) 0.6 L Barber # (Auto) 0.5 Eos # (Auto) 0.3 Baso # (Auto) 0.1 Absolute Nucleated RBC 0.00 Nucleated RBC % 0.0 PT 12.7 H INR 1.1 Sodium 133 L Potassium 3.3 L Chloride 94 L Carbon Dioxide 28 Anion Gap 11.0 BUN 21 H Creatinine 5.5 H Estimated GFR (MDRD) 10 L Glucose 99 Calcium 8.4 L Total Bilirubin 1.0 AST 23 ALT 12 Alkaline Phosphatase 100 Troponin I High Sens Total Protein 6.4 L Albumin 3.4 Globulin 3.0 Albumin/Globulin Ratio 1.1 Lipase 41 05/02/19 05/02/19 13:19 16:00 WBC RBC Hgb Hct MCV MCH MCHC RDW Plt Count MPV Neut # (Auto) Lymph # (Auto) Barber # (Auto) Eos # (Auto) Baso # (Auto) Absolute Nucleated RBC Nucleated RBC % PT INR Sodium Potassium Chloride Carbon Dioxide Anion Gap BUN Creatinine Estimated GFR (MDRD) Glucose Calcium Total Bilirubin AST ALT Alkaline Phosphatase Troponin I High Sens 103.2 H* 96.8 H* Total Protein Albumin Globulin Albumin/Globulin Ratio Lipase - Rads (name of study) CXR Radiology: Other (Bibasilar atelectasis, chronic left effusion or scarring) PD MEDICAL DECISION MAKING - ED course Complexity details: considered differential (PUD, gastritis, abdominal cramping, biliary colic, ACS, pneumothorax, enteritis) ED course: Patient is well appearing on arrival, his symptoms are completely resolved and his abdomen is soft and benign. No RUQ or RLQ tenderness CXR shows no acute abnormality. EKG shows no change from prior. Labs are notable for stable anemia, electrolyte disturbance consistent with ESRD, no hyperkalemia or abnormalities that require emergent dialysis. High sensitivity troponin is elevated at ~100, which appears to be patients baseline from his previous visit. He is asymptomatic and his pain was abdominal, brief, and resolved so I doubt ACS. 2nd troponin is downtrending, consistent with elevation from his ESRD. Patient continues to feel well. He is able to get dialysis tomorrow to finish his session that was stopped early today. I discussed with him and his daughter that I do not know what the cause of his pain was today, but he should follow with his PCP and if his pain recurs or worsens he should return to the ED. They agree and were discharged home. Departure - Departure Disposition: 01 Home, Self Care Clinical Impression: Abdominal pain Qualifiers: Abdominal location: generalized Qualified Code(s): R10.84 - Generalized abdo joyce pain Condition: Stable Instructions: ED Abdominal Pain Unkn Cause Comments: You were seen today for abdominal pain. I am not sure what caused your pain, but given that it has resolved, think you are safe to follow-up with her primary care provider. If you develop recurrent pain, vomiting, chest pain, shortness of breath, return to the emergency department. Please follow-up with your primary care provider and your pediatric physician assistant. You do have some changes to your electrolytes that need to be monitored. Discharge Date/Time: 05/02/19 16:45
[2019-05-02 13:32] LABS: BASOPHILS # (AUTO) 0.1 10^3/uL (0.0-0.1); BASOPHILS % (AUTO) 0.7 %; EOSINOPHILS # (AUTO) 0.3 10^3/uL (0.0-0.7); EOSINOPHILS % (AUTO) 3.7 %; LYMPHOCYTES # (AUTO) 0.6 10^3/uL (1.5-3.5); LYMPHOCYTES % (AUTO) 7.7 %; MEAN CORPUSCULAR HEMOGLOBIN 37.5 pg (27.0-31.0); MEAN CORPUSCULAR HGB CONC 35.3 g/dL (32.0-36.0); MEAN PLATELET VOLUME 11.5 fL (7.4-11.4); MONOCYTES # (AUTO) 0.5 10^3/uL (0.0-1.0); MONOCYTES % (AUTO) 6.9 %; NEUTROPHILS # (AUTO) 5.7 10^3/uL (1.5-6.6); NEUTROPHILS % (AUTO) 80.6 %; PLT - PLATELET COUNT 84 10^3/uL (130-450); RED BLOOD COUNT 2.67 10^6/uL (4.70-6.10); RED CELL DISTRIBUTION WIDTH 14.3 % (12.0-15.0); WHITE BLOOD COUNT 7.1 x10^3/uL (4.8-10.8)
[2019-05-02 13:41] LABS: INR 1.1 (0.8-1.2); PT - PROTHROMBIN TIME 12.7 secs (9.9-12.6)
[2019-05-02 13:43] LABS: ALBUMIN 3.4 g/dL (3.2-5.5); ALBUMIN/GLOBULIN RATIO 1.1 (1.0-2.2); CALCIUM 8.4 mg/dL (8.5-10.3); CREATININE 5.5 mg/dL (0.6-1.2); TOTAL PROTEIN 6.4 g/dL (6.7-8.2)
--- NOTE | 2019-05-02 13:47 | XRAY Report ---
Reason: chest pain Procedure Date: 05/02/2019 Accession Number: [id number] / [id number] Procedure: XR - Chest 1 View X-Ray CPT Code: 63634 FULL RESULT: EXAM: CHEST RADIOGRAPHY EXAM DATE: 05/02/2019 01:33 PM. CLINICAL HISTORY: Chest pain. COMPARISON: CHEST 1 VIEW 04/20/2019 3:16 PM. TECHNIQUE: 1 view. FINDINGS: Lungs/Pleura: Bilateral lower lobe areas of infiltrate or atelectasis. Chronic left pleural effusion or pleural thickening. Mediastinum: Stable cardiomegaly. Ectatic calcified aorta. Other: None. IMPRESSION: Bibasal areas of infiltrate or atelectasis. Chronic left effusion or pleural thickening RADIA
[2019-05-02 16:02] VITALS: BP 149/95
== END 2019-05-02 16:45 | disposition home or self-care (01) ==
LOC: ED 11:17
DX: R10.84 Generalized abdominal pain (principal); I12.0 Hypertensive chronic kidney disease with stage 5 chronic kidney disease or end stage renal disease; N18.6 End stage renal disease; Z99.2 Dependence on renal dialysis; I49.1 Atrial premature depolarization; J98.11 Atelectasis; R74.8 Abnormal levels of other serum enzymes; D64.9 Anemia, unspecified
CPT/HCPCS: 36415; 71045; 80053; 83690; 84484; 85025; 85610; 93005; 99283; 99284

== ENCOUNTER 2019-06-24 11:51 | Outpatient (CLI) | payer MEDICAID | END 2019-06-24 11:52 | disposition short-term general hospital (02) | LOC: EMS 11:51 | PROVIDERS: ATTEND Surgery | DX: R53.1 Weakness (principal); M79.672 Pain in left foot; M79.671 Pain in right foot; R73.09 Other abnormal glucose; Z99.2 Dependence on renal dialysis | CPT/HCPCS: A0425; A0427; A0999 ==